=== PATIENT | female | born 1940 | race Caucasian/White ===

== ENCOUNTER → 2016-10-08 | Outpatient (CLI) | payer OTHER, MEDICARE ==
[~2016-10-08] VITALS: Ht 157.5 cm; Wt 59.0 kg
[~2016-10-08] MED LIST: ALEVE220 MG PO; APRAZOLAM OR; BUFFERIN 81 MG81 MG; CARDIZEM CD180 MG OR; CARDIZEM CD180 MG PO; CELEXA 20 MG TA20 M1; CYMBALTA60 MG PO; HYDROCODONE-AP1 EAC6 PO; LASIX 20 MG TAB20 MG PO; MECLIZINE HCL25 M1; MOBIC7.5 MG PO; OMEPRAZOLE PO; PERCOCET PO; PRILOSEC 20 MG20 MG; PRILOSEC OTC20 MG PO; PROPOXY-N-APAP1 EACH; STOOL SOFTENER100 MG PO; TYLENOL325 MG PO; VITAMIN C500 M1 PO; XANAX 0.5 MG0.5 M1 PO; ZOFRAN ODT4 MG PO
--- NOTE | ~2016-10-08 | P ---
[facility] [place] [address] PROCEDURE REPORT Name: MINESH RODRIGUEZ Room #: REG JAMI Paulino#: [id number] Admission: 10/08/16 Attend Phys: Eduardo Thomas Discharge: Date of : 36 Report #: [id number] THIS REPORT FOR: //name// CC: Eduardo Morales MD DATE OF SERVICE: 10/08/2016 PROCEDURE PERFORMED: Upper endoscopy with esophageal dilation. HISTORY OF PRESENT ILLNESS: The patient is a 76-year-old female with long history of dysphagia. She has undergone several upper endoscopies with dilations by myself in the past, last one being 7 years ago. She also had a very large hiatal hernia. This was repaired several years ago. Despite this, she continues to have dysphagia. Plan is for EGD with dilation. DESCRIPTION OF PROCEDURE: The risks and benefits of the procedure were explained to the patient, those risks including but not limited to bleeding, perforation, the risk of sedation. She understood these risks and gave informed consent. Sedation was given using propofol per anesthesia. Next, using a standard [employer] upper endoscope, the scope was placed in the patient's mouth and advanced under direct vision through the esophagus, stomach and into the second portion of the duodenum. The larynx and upper esophagus were normal; however, in the mid and distal esophagus, it was very tortuous. At the GE junction, there was a mild narrowing. Upon entering the stomach, a medium-sized hiatal hernia was noted. Overall, the gastric mucosa was normal. The pylorus was normal and patent. The duodenal bulb, first and second portion were all normal. The scope was then brought back up into the patient's stomach and a Savary guidewire was inserted through the scope, leaving the guidewire in place as the scope was then withdrawn. Next, a 48-[place] Savary dilation of the esophagus was performed without difficulty. The wire and dilator were removed. The scope was reintroduced into the patient's stomach. A small mucosal tear was noted at the GE junction. There was no bleeding. The scope was then withdrawn and the procedure terminated. The patient tolerated the procedure well. IMPRESSION: 1. Tortuous mid and distal esophagus may be playing a role in her dysphagia. 2. Medium sized hiatal hernia also may be playing a role in dysphagia. 3. Mild narrowing at the gastroesophageal junction, status post dilation. RECOMMENDATIONS: Observe the patient post-procedure. If dysphagia continues, consider a video swallow in the near future. [address] [address] PROCEDURE REPORT Name: MINESH RODRIGUEZ Room #: REG JAMI Paulino#: [id number] Admission: 10/08/16 Attend Phys: Eduardo Thomas Discharge: Date of : 36 Report #: [id number] Thank you for allowing me to participate in her care. By: 0849 [id number] Eduardo Cavazos MD /jaspreet
== END | disposition home or self-care (01) ==
LOC: GI 06:32
DX: K22.2 Esophageal obstruction (principal); K22.8 Other specified diseases of esophagus; K44.9 Diaphragmatic hernia without obstruction or gangrene; I10 Essential (primary) hypertension; J43.9 Emphysema, unspecified; K21.9 Gastro-esophageal reflux disease without esophagitis; E78.5 Hyperlipidemia, unspecified; M19.90 Unspecified osteoarthritis, unspecified site; F32.9 Major depressive disorder, single episode, unspecified; F41.9 Anxiety disorder, unspecified; Z98.890 Other specified postprocedural states; Z90.710 Acquired absence of both cervix and uterus; Z87.891 Personal history of nicotine dependence; Z88.0 Allergy status to penicillin; Z79.899 Other long term (current) drug therapy
CPT/HCPCS: 62110; 62900

== ENCOUNTER → 2016-11-30 | Outpatient (CLI) | payer OTHER, MEDICARE ==
--- NOTE | ~2016-11-30 | 2DMMODE ---
[facility] [place] [address] 2 D/M-MODE ECHOCARDIOGRAM Name: MINESH RODRIGUEZ Room #: REG Lora#: [id number] Admission: 11/30/16 Attend Phys: Mckay Woods Discharge: Date of : 36 Date of Service: 11/30/16 1420 Report #: [id number] THIS REPORT FOR: //name// APPROVED REPORT Study performed: 11/30/2016 12:51:55 EXAM: Comprehensive 2D, Doppler, and color-flow Echocardiogram Patient Location: Out-Patient Room #: Echo lab Status: routine BSA: 1.59 HR: 61 bpm BP: 138/78 mmHg Other Information Study Quality: Adequate Indications Pulmonary Hypertension Dyspnea 2D Dimensions RVDd: 34.49 mm LVEF(%): 69.10 (>50%) IVSd: 8.83 (7-11mm) LVOT Diam: 22.15 (18-24mm) LVDd: 32.16 mm PWd: 10.00 (7-11mm) Ascending Ao: 28.32 (22-36mm) LVDs: 20.05 (25-40mm) Aortic Root: 28.72 mm Waggoner's LVEF: 69.10 % Volumes Left Atrial Volume (Systole) Single Plane 4CH: 46.40 mL Single Plane 2CH: 32.90 mL LA ESV Index: 26.00 mL/m2 Aortic Valve AoV Peak Wilfredo.: 1.30 m/s AO Peak Gr.: 6.76 mmHg LVOT Max P.97 mmHg LVOT Max V: 1.22 m/s FLAVIA Vmax: 3.62 cm2 AI Vmax: 4.09 m/s AI [place]: 1.83 m/s2 AI PHT: 647.14 ms [facility] [place] [address] 2 D/M-MODE ECHOCARDIOGRAM Name: MINESH RODRIGUEZ [facility] [id number] Admission: 11/30/16 Attend Phys: Mckay Woods Discharge: Date of : 36 Date of Service: 11/30/16 1420 Report #: [id number] Mitral Valve E/A Ratio: 0.8 MV Decel. Time: 253.60 ms MV E Max Wilfredo.: 0.72 m/s MV A Wilfredo.: 0.87 m/s MV PHT: 73.54 ms IVRT: 115.34 ms Pulmonary Valve PV Peak Wilfredo.: 0.85 m/s PV Peak Gr.: 2.90 mmHg Pulmonary Vein P Vein S: 0.46 m/s P Vein A: 0.37 m/s P Vein D: 0.31 m/s P Vein A Dur.: 129.2 msec P Vein S/D Ratio: 1.48 Tricuspid Valve TR Peak Wilfredo.: 3.22 m/s TR Peak Gr.: 41.42 mmHg Left Ventricle The left ventricle is normal size. There is normal left ventricular wall thickness. Left ventricular systolic function is hyperdynamic. LVEF is 65-70%. Grade I - abnormal relaxation pattern. Right Ventricle The right ventricle is normal size. The right ventricular systolic function is normal. Atria The left atrium size is normal. Right atrium is at the upper limits of normal. Aortic Valve The aortic valve is normal in structure. Aortic valve is calcified. Trace to mild aortic regurgitation. There is no aortic valvular stenosis. Mitral Valve The mitral valve is normal in structure. Trace to mild mitral regurgitation. No evidence of mitral valve stenosis. Tricuspid Valve The tricuspid valve is normal in structure. Mild to moderate tricuspid regurgitation with an estimated PAP of 41 mmHg plus the right atrial pressure. [facility] [address] [place] [address] 2 D/M-MODE ECHOCARDIOGRAM Name: MINESH RODRIGUEZ Room #: REG CL [facility]#: [id number] Admission: 11/30/16 Attend Phys: Mckay Woods Discharge: Date of : 36 Date of Service: 11/30/16 1420 Report #: [id number] Pulmonic Valve The pulmonary valve is normal in structure. Great Vessels The aortic root is normal in size. The inferior vena cava is not well visualized. Pericardium There is no pericardial effusion. <Conclusion> The left ventricle is normal size. LVEF is 65-70%. Right atrium is at the upper limits of normal. The aortic valve is normal in structure. Aortic valve is calcified. Trace to mild aortic regurgitation. The mitral valve is normal in structure. Trace to mild mitral regurgitation. The tricuspid valve is normal in structure. Mild to moderate tricuspid regurgitation with an estimated PAP of 41 mmHg plus the right atrial pressure. There is no aortic valvular stenosis. <ELECTRONICALLY SIGNED> By: Blane Moreno MD 11/30/16 1420 142 142 Blane Moreno MD /INF
== END ==
LOC: CAT 11:56
PROVIDERS: Internal Medicine Pulmonary Disease
DX: I27.2 Other secondary pulmonary hypertension (principal); J44.9 Chronic obstructive pulmonary disease, unspecified; K44.9 Diaphragmatic hernia without obstruction or gangrene; I07.1 Rheumatic tricuspid insufficiency

== ENCOUNTER → 2017-01-04 | Outpatient (CLI) | payer OTHER, MEDICARE ==
--- NOTE | ~2017-01-04 | SLE ---
[facility] [place] [address] POLYSOMNOGRAPHY STUDY Name: MINESH RODRIGUEZ Room #: REG JAMI ..#: [id number] Admission: 01/04/17 Attend Phys: Missy Deluca MD Discharge: Date of : 36 Report #: [id number] THIS REPORT FOR: //name// CC: Missy Morales HISTORY: A 76-year-old, height 5 feet 1 inch, weight 142 pounds. Usually goes to bed at 9, gets out of bed at 8:30. Positive snoring, no definite daytime somnolence. [place] sleepiness scale of 6. COMMENTS: Total sleep time 199 minutes, sleep efficiency 45%. Sleep latency 102 minutes. No REM sleep seen. SLEEP STAGE: 1-10%, 2-88%, 3-2%. RESPIRATORY SUMMARY: Central apnea 7, obstructive apnea 1, hypopnea 5. Apnea-hypopnea index of 3.9 events per recording hour. Supine AHI 3, right lateral 4.8 events per sleep hour. Periodic limb movement with arousal index 0 events per sleep hour. No significant snoring noted. Low oxygen saturation 85%, spending 1.5% of recording time less than 90%. During the study, the patient took two 0.5 mg alprazolam at 2230. SUGGESTIONS: 1. In addition to specific therapy, the patient should be cautioned regarding driving or operating dangerous machinery unless fully alert. 2. The patient will be cautioned regarding the use of respiratory depressants. 3. Further evaluation regarding snoring is recommended. 4. Sleep hygiene measures are recommended. 5. This study does not exclude REM related sleep apnea, and further discussion regarding this is recommended. 6. Further discussion with the patient regarding why poor sleep on this night is recommended. Please do not hesitate to contact me if I may be of further assistance. <ELECTRONICALLY SIGNED> By: Missy Deluca MD 01/06/171909 07 Missy Deluca MD /nt
== END ==
LOC: SLEEPLAB 14:04 → EDSTATUS 14:08 → SLEEPLAB 16:52
DX: G47.33 Obstructive sleep apnea (adult) (pediatric) (principal)

== ENCOUNTER → 2017-01-11 | Outpatient (CLI) | payer OTHER, MEDICARE ==
--- NOTE | ~2017-01-11 | SLE ---
[facility] [address] [place] [address] POLYSOMNOGRAPHY STUDY Name: MINESH RODRIGUEZ Room #: REG JAMI Ning.#: [id number] Admission: 01/11/17 Attend Phys: Mckay Woods MD Discharge: Date of : 36 Report #: [id number] THIS REPORT FOR: //name// CC: Mckay Woods Alex Morales HISTORY: A 76-year-old, height 5 feet 1 inch, weight 142 pounds. Usually goes to bed at 9:00, gets out of bed at 8:30; positive snoring; no definite daytime somnolence. COMMENTS: Baseline portion: Total sleep time 142 minutes, sleep efficiency 60%. Central apnea 4, mixed apnea 1, obstructive apnea 25, hypopnea 39. Apnea-hypopnea index 29 events per sleep hour. Non-REM 33 REM AHI 0. Supine AHI 80, left lateral 1.3 events per sleep hour. Periodic limb movement with arousal index 0 events per sleep hour. Low oxygen saturation 85%, spending 1% of recording time less than 90%. TITRATION: Titrated at 7, 9, 10, 12, 14, 16, 17, 18 and 19 cm of water pressure. 19 cm water pressure, the patient was seen for 164 minutes of which 48 minutes was in REM sleep. Central apnea 2, obstructive apnea, 1, hypopnea, 1, apnea-hypopnea index 1.5 events per sleep hour, low sat of 95%. IMPRESSION: 1. Obstructive sleep apnea/hypopnea, G47.33. 2. Periodic limb movement with arousal index of 0 events per sleep hour. 3. Premature atrial contractions/premature ventricular contractions noted. 4. CPAP improves the patient's apnea-hypopnea index, snoring and desaturation. SUGGESTIONS: 1. In addition to specific therapy, the patient should be cautioned regarding driving or operating dangerous machinery unless fully alert. The patient should be cautioned on use of respiratory depressants. 2. Oral appliance or appropriate surgery may be considered with appropriate followup. 3. An auto titrating CPAP between 10 and 20 cm water pressure is initially recommended. During our study, a [employer]ics [place] View mask small was used with heated humidity. The patient also took zolpidem at that time. 4. If signs and symptoms not improved with therapy, further evaluation is recommended. [address] [address] POLYSOMNOGRAPHY STUDY Name: MINESH RODRIGUEZ Room #: REG [facility] Ning.#: [id number] Admission: 01/11/17 Attend Phys: Mckay Woods MD Discharge: Date of : 36 Report #: [id number] Please do not hesitate to contact me if I may be of further assistance. By: 1604 Missy Deluca MD /nt
== END ==
LOC: SLEEPLAB 19:34
DX: G47.33 Obstructive sleep apnea (adult) (pediatric) (principal)

== ENCOUNTER → 2017-03-09 | Outpatient (CLI) | payer OTHER, MEDICARE ==
--- NOTE | ~2017-03-09 | P ---
[facility] [place] [address] PROCEDURE REPORT Name: MINESH RODRIGUEZ Room #: REG JAMI Paulino#: [id number] Admission: 03/09/17 Attend Phys: Eduardo Thomas Discharge: Date of : 36 Report #: [id number] THIS REPORT FOR: //name// CC: Eduardo Morales MD DATE OF SERVICE: 03/09/2017 PROCEDURE PERFORMED: Colonoscopy. HISTORY OF PRESENT ILLNESS: The patient is a 76-year-old female who presents today for routine screening colonoscopy. She has a family history of colon cancer in her mother. She denies any symptoms. DESCRIPTION OF PROCEDURE: The risks and benefits of the procedure were explained to the patient, those risks including but not limited to bleeding, perforation, the risk of sedation. She understood these risks and gave informed consent. Sedation was given using propofol per anesthesia. Next, a digital rectal exam was initially performed, which was normal. Next, using a standard Fujinon colonoscope, the scope was placed in the patient's anus and advanced under direct vision to the cecum. The overall prep was excellent. The cecum and ileocecal valve were normal in appearance. The ascending, transverse and descending colon were normal. Multiple diverticula were noted in the sigmoid colon, otherwise normal. The rectal mucosa was normal. On retroflexion, small nonbleeding internal hemorrhoids were noted. The scope was then withdrawn and the procedure terminated. The patient tolerated the procedure well. IMPRESSION: 1. Diverticulosis. 2. Internal hemorrhoids. 3. Otherwise, normal colonoscopy. RECOMMENDATIONS: Observe the patient post-procedure. Thank you for allowing me to participate in her care. By: 1235 1715 Eduardo Cavazos MD /nt
== END | disposition home or self-care (01) ==
LOC: GI 09:25
DX: Z12.11 Encounter for screening for malignant neoplasm of colon (principal); K57.30 Diverticulosis of large intestine without perforation or abscess without bleeding; K64.8 Other hemorrhoids; Z80.0 Family history of malignant neoplasm of digestive organs; Z88.0 Allergy status to penicillin; Z79.891 Long term (current) use of opiate analgesic; Z79.899 Other long term (current) drug therapy

== ENCOUNTER 2017-09-30 10:31 | Inpatient (IN) | payer OTHER, MEDICARE ==
[~2017-09-30] VITALS: Ht 152.4 cm; Wt 62.6 kg
--- NOTE | ~2017-09-30 | O ---
[facility] [place] [address] OPERATIVE REPORT Name: MINESH RODRIGUEZ Room #: 360-[facility] IN M.R.#: [id number] Admission: 09/30/17 Attend Phys: Blade Spaulding MD Discharge: Date of : 38 Report #: [id number] THIS REPORT FOR: //name// CC: Alex Spaulding DATE OF SERVICE: 10/10/2017 PREOPERATIVE DIAGNOSES: 1. Recurrent type 3 paraesophageal hernia. 2. Dysphagia. 3. Gastroesophageal reflux disease. 4. Coronary artery disease. 5. Hyperlipidemia. 6. Recent gastrointestinal bleed with findings of internal hemorrhoids. POSTOPERATIVE DIAGNOSES: 1. Recurrent type 3 paraesophageal hernia. 2. Dysphagia. 3. Gastroesophageal reflux disease. 4. Coronary artery disease. 5. Hyperlipidemia. 6. Recent gastrointestinal bleed with findings of internal hemorrhoids. 7. Dense intra-abdominal adhesions. PROCEDURES PERFORMED: 1. Laparoscopic repair of a recurrent type 3 paraesophageal hernia with cruroplasty and bioresorbable mesh buttressing. 2. Extensive laparoscopic lysis of adhesions. 3. Thorough esophagogastroduodenoscopy (EGD). SURGEON: Trent Retana M.D. AIR CREW MEMBER: Jimmie Lee DO. ANESTHESIA: General endotracheal anesthesia. ESTIMATED BLOOD LOSS: Minimal (less than 10 mL). COMPLICATIONS: None appreciated. SPECIMENS: None. INDICATIONS: The patient is a 77-year-old female with a prior history of a laparoscopic hiatal hernia repair without any sort of fundoplication done 8 years ago. The patient was doing well with her longstanding reflux disease [facility] [address] [place] [address] OPERATIVE REPORT Name: MINESH RODRIGUEZ Room #: 360-P ADM IN M.R.#: [id number] Admission: 09/30/17 Attend Phys: Blade Spaulding MD Discharge: Date of : 38 Report #: [id number] until recently when she developed dysphagia and was found to have an extremely tortuous esophagus with difficulty entering into the gastric lumen by Dr. Cavazos approximately 10 days ago. Since that time, the patient developed even worsening dysphagia with inability to swallow and came back in where she underwent repeat EGD by Dr. Milton showing food within her esophagus and inability to now penetrate into the gastric lumen from a kinked esophagus, suspected to be due to her large recurrent paraesophageal hernia. CT angiogram of the chest showed displacement of the stomach within the mediastinum with very little stomach in the abdomen and as she has been intolerant to p.o. intake, indication was for repair once again today. Intraoperative findings of what appeared to be biologic mesh buttressing the prior hiatal repair were encountered as well as dense adhesions required a lengthy laparoscopic lysis of adhesions and a formal repair once again today. In light of no knowledge of her esophageal motility, no antireflux procedure was performed, but rather correction of her anatomic abnormality was undertaken today. DESCRIPTION OF PROCEDURE: After explaining the risks, benefits and alternatives of the procedure with the patient in detail in the preoperative holding area and obtaining written consent, the patient was brought to the operating room and placed supine on the operating room table. After conducting a thorough timeout procedure verifying correct patient and procedure, the patient was given general endotracheal anesthesia. Once adequate anesthesia was obtained, her SCDs were hooked up to pneumatic compression device and she was given a preoperative dose of antibiotics in line with the SCIP protocol. The patient's abdomen was prepped and draped in standard surgical sterile fashion after positioning her in the low lithotomy position with her legs in the Yellofin stirrups. The 5 mL of 0.5% Marcaine with epinephrine were used to anesthetize the skin 3 cm cephalad to the umbilicus and 2 cm to the patient's left. A #15 bladed scalpel was used to create a small skin natalie at this location. A 5-mm Visiport was placed over 0-degree 5-mm laparoscope and was introduced through this incision site. Once intra-abdominal placement was verified visually, the obturator for the trocar and laparoscope were both removed and the abdomen was insufflated to 15 mmHg using carbon dioxide gas. The laparoscope was changed to a 5-mm 30-degree laparoscope, which was reintroduced through this trocar. The entire abdomen was evaluated to ensure no injury upon entry. There were adhesions of omentum throughout the upper abdomen. We were able to navigate around these and place additional trocars. A 5-mm port was placed in the right upper quadrant at the midclavicular line in subcostal location, a 12-mm port was placed 5 cm lateral to the initially placed port in the left mid flank and a final 5-mm port was placed in extreme left lateral flank. All 3 additional trocars were placed under direct vision after anesthetizing the skin at each location with 5 mL of 0.5% Marcaine with epinephrine and I had created appropriately sized skin nicks using #15 bladed scalpel. I now took down omental adhesions from the abdominal wall in the upper abdomen using Harmonic scalpel for hemostasis. I was now able to evaluate the stomach and upper abdomen. I placed a Parker liver retractor in subxiphoid location by anesthetizing the skin at that location with [address] [address] OPERATIVE REPORT Name: MINESH RODRIGUEZ Room #: 360-P [facility] IN ..#: [id number] Admission: 09/30/17 Attend Phys: Blade Spaulding MD Discharge: Date of : 38 Report #: [id number] 0.5% Marcaine with epinephrine and I had created a small skin natalie using a #15 bladed scalpel. The Parker retractor was maneuvered through this defect where it was positioned up under the left lobe of the liver and was held up against the posterior aspect of the anterior abdominal wall. This was fixed into position using the iron international controller device. We now had complete access to the stomach and hiatal regions and saw very little stomach contained within the abdomen and a sizeable hiatal defect from the type 3 paraesophageal hernia. We now applied gentle manual traction on the stomach in an inferior direction to attempt to retract it back down into the abdomen. We were able to open the pars flaccida to identify the base of the right nicole. I dissected anteriorly up the right nicole and found a foreign material which upon review appears to be a biologic mesh from prior buttressing at the time of her prior hernia repair. Ultimately, I was able to take the omental adhesions from this down as this appeared well incorporated into the hiatus. I continued taking down the hernia sac staying well away from all esophageal and gastric tissues at all times to prevent injury from thermal spread and did so. I took down all of the adhesions, staying well away from these structures and carried the dissection as far cephalad as possible. The stomach was then reflected anteriorly into the patient's right side and I was able to identify the base of the left nicole and dissected anteriorly up the left nicole as well. Ultimately, I was able to pass a grasper from the patient's right to left side in the retroesophageal space where I brought a Alondra drain through this area where I had mated the tails anteriorly to be used as a handle. This was cinched up on the esophagus and we were able to retract inferiorly and anteriorly to complete the extensive mediastinal dissection using Harmonic scalpel to take down all adhesions in the mediastinum that were longstanding and thick and ultimately, we were able to identify a straight esophagus that had now had no traction to recoil backup in the mediastinum. At the completion of this extensive mediastinal dissection, we had approximately 4 cm of intraabdominal esophagus that again was not under traction to recoil backup in the mediastinum. The esophagus was elevated anteriorly and we started the process of repairing the hiatal defect from the type 3 paraesophageal hernia. Several sutures of 0 Surgidac on the EndoStitch device were used to perform the cruroplasty posteriorly. This was brought up until the esophagus appeared to enter into the abdomen at a level position and as such required an additional suture anteriorly to bring the tissues together around the esophagus so as not to distort the angle of entry into the abdomen too severely and cause further dysphagia in the postoperative setting. Photodocumentation of the hiatal repair were taken and provided to the patient in permanent medical record. I now selected a piece of Phasix ST bioresorbable mesh that measured 6 x 8 cm in dimension. A U-shaped notch was cut out of it and was entered into the abdomen through the 12-mm port. This was positioned appropriately on the diaphragm with the U-shaped notch oriented upwards in standard fashion. This was anchored to the diaphragm using 10 mL of Tisseel on the Alderalospray device. This held the mesh in excellent orientation, flush to the diaphragmatic repair to help buttress it. The Vassar drain was now removed and again saw 4 cm of intraabdominal esophagus that was not under traction to [facility] [address] [place] [address] OPERATIVE REPORT Name: MINESH RODRIGUEZ Room #: 360-P [facility] IN Lora#: [id number] Admission: 09/30/17 Attend Phys: Blade Spaulding MD Discharge: Date of : 38 Report #: [id number] attempt to recoil into the mediastinum. We now had the complete stomach in addition to the 4 cm of the esophagus contained within the abdomen in proper orientation. We now performed an EGD. The [employer] upper endoscope was used to intubate the oropharynx, was traversed down in the esophagus with ease. The esophagus was straight and we were able to easily intubate through the hiatal repair as well as to the lower esophageal sphincter into the gastric lumen. There were small amount of retained food debris in the esophagus that was pushed into the stomach with the scope. A retroflexion view showed excellent orientation of the hiatal repair. There were no mucosal abnormalities whatsoever. The scope was straightened out and slowly withdrawn into the distal esophagus again where it was seen to enter through the hiatal repair and through the lower esophageal sphincter on several occasions without resistance. There was no kinking to the esophagus whatsoever. There was no damage evident whatsoever. The stomach was fully desufflated. The EGD scope was removed and passed off the field. I then sterilely reenter the operative field and then closed the 12-mm fascial incision using 0 PDS suture on a Jc-Michael suture passer device under direct vision. The Parker liver retractor was removed under direct vision. The liver was healthy and uninjured. The abdomen was fully desufflated. All remaining trocars were removed under direct vision. A 4-0 Monocryl was used in a standard subcuticular fashion for all skin incisions and Dermabond glue was applied to all skin wounds. At the end of the procedure, all instrument, needle and sponge counts were correct. The patient tolerated the procedure without incident, was awakened in the operating room, transitioned to the recovery room in stable condition with no apparent complications. <ELECTRONICALLY SIGNED> By: Trent Retana MD, FACS 10/10/17 1728 [id number] [id number] Trent Retana MD, FACS /nt
--- NOTE | ~2017-09-30 | PATH ---
[facility] [place] [address] PATHOLOGY RPT PROCEDURE Name: MINESH RODRIGUEZ Room #: 360-P ADM IN M.R.#: [id number] Admission: 09/30/17 Date of : 38 Discharge: Report #: [id number] Path Case #: [id number] [facility] Accession Number: [id number] . 01 Material submitted: . BIOPSY, GASTRIC . 01 Clinical history: . Pre-Op DX: Melena Post-Op DX: Gastric ulcer . 02 Diagnosis: "BX gastric R/O H. pylori", biopsy: - Gastric mucosa with mild reactive changes and mild acute and chronic inflammation. - Negative H. pylori immunohistochemical stain (block A1); control reacted appropriately. . (CLW:mmole; 10/03/2017) QL/10/03/2017 . 02 Electronically signed: . Marian Berger MD, Pathologist NPI- [id number] . 01 Gross description: . Received in formalin labeled "Josesito, Minesh, BX gastric rule out H. pylori" are 3 segments of childers soft tissue measuring 0.9 x 0.4 x 0.2 cm in aggregate dimensions and ranging from 0.2 to 0.4 cm in maximum dimension. The specimen is submitted entirely in cassette A1. (TSD; 09/30/2017) TOB/TOB . 02 CPT . 542255, W32566 Performed at: [address] [id number] MD Darrel Patricio MD Phone: [phone] Performed at: [address] [id number] MD Concepción Dorsey MD Phone: [phone]
--- NOTE | ~2017-09-30 | EKG ---
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 : 1940 Requested By: Harvinder Mascorro Order Number: [id number] MD: Dewey Du Measurements Intervals [place] Rate: 74 P: 17 PA: 162 QRS: -14 QRSD: 91 T: 53 QT: 392 QTc: 435 Interpretive Statements Sinus rhythm Inferior infarct, old Probable anterolateral infarct, old Compared to ECG 10/10/2015 09:18:07 No significant change was found Electronically Signed On 09-30-2017 16:30:43 CDT by Dewey Du [email or web address] <ELECTRONICALLY SIGNED> By: Dewey Du MD, [facility] 09/30/17 1630 1101 00 Dewey Du MD, [facility] /EPI
--- NOTE | ~2017-09-30 | EKG ---
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[place] : 1940 Requested By: Blade Spaulding Order Number: [id number] MD: Dewey Du Measurements Intervals [place] Rate: 82 P: 49 DE: 149 QRS: -63 QRSD: 97 T: 4 QT: 399 QTc: 466 Interpretive Statements Sinus rhythm Inferior infarct, old Poor R wave progression Compared to ECG 09/30/2017 11:01:54 No significant changes Electronically Signed On 10-05-2017 15:41:53 CDT by Dewey Du [email or web address] <ELECTRONICALLY SIGNED> By: Dewey Du MD, [facility] 10/05/17 1541 1053 1053 Dewey Du MD, [facility] /EPI
--- NOTE | ~2017-09-30 | 2DMMODE ---
[facility] [address] [place] [address] 2 D/M-MODE ECHOCARDIOGRAM Name: MINESH RODRIGUEZ Room #: 360-P ADM IN .R.#: [id number] Admission: 09/30/17 Attend Phys: Blade Spaulding MD Discharge: Date of : 38 Date of Service: 10/03/17 1515 Report #: [id number] THIS REPORT FOR: //name// APPROVED REPORT Study performed: 10/03/2017 13:05:05 EXAM: Comprehensive 2D, Doppler, and color-flow Echocardiogram Patient Location: Bedside Room #: 360 Status: routine BSA: 1.59 HR: 68 bpm BP: 127/57 mmHg Other Information Study Quality: Technically Difficult Indications Hypertension/HDD SOB/hypoxia 2D Dimensions RVDd: 38.39 mm LVEF(%): 75.00 (>50%) IVSd: 7.84 (7-11mm) LVOT Diam: 19.68 (18-24mm) LVDd: 38.00 mm PWd: 8.66 (7-11mm) LVDs: 21.61 (25-40mm) Aortic Root: 27.05 mm Waggoner's LVEF: 75.00 % Volumes Left Atrial Volume (Systole) Single Plane 4CH: 50.07 mL Single Plane 2CH: 45.41 mL LA ESV Index: 33.00 mL/m2 Aortic Valve AoV Peak Wilfredo.: 1.60 m/s AO Peak Gr.: 11.45 mmHg LVOT Max P.48 mmHg LVOT Max V: 1.27 m/s FLAVIA Vmax: 2.42 cm2 AI Vmax: 4.20 m/s AI [place]: 3.72 m/s2 AI PHT: 327.[address] [facility] [place] [address] 2 D/M-MODE ECHOCARDIOGRAM Name: JENNIFERMINESH Room #: [address] [place] [address] IN ..#: [id number] Admission: 09/30/17 Attend Phys: Blade Spaulding MD Discharge: Date of : 38 Date of Service: 10/03/17 1515 Report #: [id number] Mitral Valve E/A Ratio: 1.1 MV Decel. Time: 250.69 ms MV E Max Wilfredo.: 0.96 m/s MV A Wilfredo.: 0.86 m/s MV PHT: 72.70 ms IVRT: 89.97 ms Pulmonary Valve PV Peak Wilfredo.: 1.03 m/s PV Peak Gr.: 4.28 mmHg Pulmonary Vein P Vein S: 0.75 m/s P Vein A: 0.37 m/s P Vein D: 0.45 m/s P Vein A Dur.: 90.0 msec P Vein S/D Ratio: 1.67 Tricuspid Valve TR Peak Wilfredo.: 3.71 m/s TR Peak Gr.: 55.11 mmHg Left Ventricle The left ventricle is normal size. There is normal left ventricular wall thickness. The left ventricular systolic function is normal. The left ventricular ejection fraction is within the normal range. LVEF is 65%. Moderate diastolic dysfunction is present (pseudonormal filling). Right Ventricle Right ventricle is at the upper limits of normal. The right ventricular systolic function is normal. Atria The left atrium size is normal. Right atrium is mildly dilated. Aortic Valve The aortic valve is not well visualized. Moderate to severe aortic regurgitation There is no aortic valvular stenosis. Mitral Valve The mitral valve is normal in structure. Mild mitral regurgitation. No evidence of mitral valve stenosis. Tricuspid Valve The tricuspid valve is normal in structure. Moderate tricuspid [address] [address] 2 D/M-MODE ECHOCARDIOGRAM Name: MINESH RODRIGUEZ Room #: 360-P [facility] IN M.R.#: [id number] Admission: 09/30/17 Attend Phys: Blade Spaulding MD Discharge: Date of : 38 Date of Service: 10/03/17 1515 Report #: [id number] regurgitation. PAP is estimated at 55 mmHg + estimated right atrial pressure. Pulmonic Valve Pulmonic valve is not well visualized. Mild pulmonic regurgitation visualized. Great Vessels The aortic root is normal in size. The inferior vena cava is not visualized. Pericardium There is no pericardial effusion. <Conclusion> The left ventricle is normal size. LVEF is 65%. Right atrium is mildly dilated. Right ventricle is at the upper limits of normal. The aortic valve is not well visualized and cannot accurately comment on structure Moderate to severe aortic regurgitation although technically limited results The mitral valve is normal in structure. Mild mitral regurgitation. The tricuspid valve is normal in structure. Moderate tricuspid regurgitation. PAP is estimated at 55 mmHg + estimated right atrial pressure. Pulmonic valve is not well visualized. Mild pulmonic regurgitation visualized. There is no pericardial effusion. <ELECTRONICALLY SIGNED> By: Blane Moreno MD 10/03/17 1515 1515 1515 Blane Moreno MD /INF
--- NOTE | ~2017-09-30 | HC ---
[facility] [place] [address] CONSULTATION Name: MINESH RODRIGUEZ Room #: 360-P [facility] IN M.R.#: [id number] Admission: 09/30/17 Attend Phys: Blade Spaulding MD Discharge: Date of : 38 Report #: [id number] THIS REPORT FOR: //name// CC: Alex Spaulding DATE OF SERVICE: 10/06/2017 REFERRING PROVIDER: Karma Milton DO REASON FOR CONSULT: Large recurrent paraesophageal hernia. HISTORY OF PRESENT ILLNESS: The patient is a 77-year-old female who presented initially with rectal bleeding and 5 episodes of diarrhea with dark blood. The patient was also complaining of chest pain and was seen by Dr. Cavazos last week, where he found a large recurrent hiatal hernia and underwent Savary dilation. Unfortunately, since that time, the patient has had difficulties with oral intake and underwent a repeat EGD by Dr. Milton earlier today, showing evidence of impacted food throughout the esophagus with inability to enter into the gastric lumen, consistent with a large recurrent paraesophageal hernia. In addition, the patient recently received a CT angiogram of the chest, showing findings of two-thirds of her stomach within the mediastinum. For that reason, I am asked to evaluate as she is intolerant to p.o. intake with this recurrent paraesophageal hernia. PAST MEDICAL HISTORY: Heart disease, hyperlipidemia, GERD, hiatal hernia, diverticulosis, arthritis, internal hemorrhoids. PAST SURGICAL HISTORY: Prior hysterectomy and a paraesophageal hernia repair in 2009. HOME MEDICATIONS: Oxybutynin, Prilosec, Xanax, diltiazem, Tylenol, Colace, Cymbalta, Percocet, vitamin C, and Lasix. ALLERGIES: PENICILLIN, which causes HIVES. SOCIAL HISTORY: Does not utilize tobacco, alcohol or illicit drugs. FAMILY HISTORY: Reviewed and noncontributory. REVIEW OF SYSTEMS: GENERAL: The patient denies nocturnal fevers or chills. HEENT: No change in vision, change in hearing. NECK: No swelling or difficulty swallowing. HEART: No chest pain or palpitations. LUNGS: No cough or shortness of breath. [facility] [address] [place] [address] CONSULTATION Name: MINESH RODRIGUEZ Room #: 360-P [facility] IN .R.#: [id number] Admission: 09/30/17 Attend Phys: Blade Spaulding MD Discharge: Date of : 38 Report #: [id number] ABDOMEN: Abdominal pain with nausea and vomiting. GENITOURINARY: No dysuria or hematuria. ENDOCRINE: No polyuria, polydipsia. HEMATOLOGIC: No history of bleeding or easy bruising. EXTREMITIES: No history of weakness or limited range of motion. NEUROLOGIC: No history of syncope or near syncopal episodes. SKIN AND INTEGUMENT: No history of abnormal lesions or moles. PSYCHIATRIC: No history of anxiety or depression. PHYSICAL EXAMINATION: VITAL SIGNS: Temperature 98.3, pulse 84, respirations 18, blood pressure 137/72. She weighs 138 pounds. GENERAL: Alert and oriented, in no acute distress. HEENT: Normocephalic, atraumatic. Pupils equal, round, reactive to light. NECK: Supple, without lymphadenopathy. Trachea midline. HEART: Regular rate and rhythm. LUNGS: Clear to auscultation bilaterally. ABDOMEN: Soft, nontender, nondistended. GENITOURINARY: Normal external female genitalia. EXTREMITIES: No clubbing, cyanosis or edema. NEUROLOGIC: Cranial nerves 2-12 are grossly intact. PSYCHIATRIC: Normal mood and affect. SKIN AND INTEGUMENT: No abnormal lesions or moles. LABORATORY AND X-RAY DATA: CBC shows white blood cell count of 7.6 thousand; hemoglobin 10.4; platelets 332,000. Creatinine is 0.7 and albumin was 2.9. CT angiogram of the chest as well as recent EGD findings, as per HPI, show a large recurrent type 3 paraesophageal hernia. ASSESSMENT AND PLAN: A 77-year-old female with at least a type 3, if not a type 4 recurrent paraesophageal hernia and inability to tolerate p.o. intake. I will obtain an upper GI swallow today to evaluate whether there is any patency of liquids and if so, we may be able to buy time and obtain a formal manometry study. However, if she is intolerant or is completely obstructed, she may necessitate more urgent surgical intervention with laparoscopic possible open repair of her recurrent paraesophageal hernia, likely with placement of a PEG tube to pexy the stomach within the abdomen and further prevent recurrence. All the above was discussed with the patient and her family in detail that took greater than 60 minutes today, discussing the etiology, pathophysiology and natural history of hiatal hernias as well as the proposed surgical treatment moving forward. All of agreed to proceed as outlined. [facility] [address] [place] [address] CONSULTATION Name: MINESH RODRIGUEZ Room #: 360-P ADM IN M.R.#: [id number] Admission: 09/30/17 Attend Phys: Blade Spaulding MD Discharge: Date of : 38 Report #: [id number] I sincerely appreciate this consult. I will follow along and leave any further recommendations in the patient's chart as appropriate. <ELECTRONICALLY SIGNED> By: Trent Retana MD, FACS 10/10/17 1355 [id number] Trent Retana MD, FACS /nt
[2017-09-30 10:32] VITALS: BP 130/51
[2017-09-30] MEDS ORDERED: OXYBUTYNIN 5 MG5 M1 PO (10:42)
[2017-09-30] MEDS ORDERED: ACULAR LS5 ML OPHTHALMIC (10:43)
[2017-09-30 11:05] LABS: ABSOLUTE NEUTROPHILS 7.4 thou/uL (1.4-8.2); BASOPHILS 0.7 % (0.0-2.0); EOSINOPHILS 0.8 % (0.0-3.0); HEMATOCRIT 28.9 % (37.0-47.0); HEMOGLOBIN 9.9 gm/dL (12.0-15.0); LYMPHOCYTES 11.4 % (24.0-44.0); MCH 29.4 pg (26.0-34.0); MCHC 34.4 g/dL (28.0-37.0); MCV 85.5 fL (80.0-100.0); MONOCYTES 8.8 % (1.0-8.0); PLATELET COUNT 248 thou/uL (150-400); POLYS 78.3 % (36.0-66.0); RBC 3.37 mil/uL (4.20-5.00); RDW 14.3 % (10.5-14.5); WBC 9.5 thou/uL (4.0-11.0)
[2017-09-30 11:11] LABS: ANION GAP 7 mmol/L (7-16); BUN 48 mg/dL (7-18); CALCIUM 8.9 mg/dL (8.5-10.1); CHLORIDE 104 mmol/L (98-107); CO2 25 mmol/L (21-32); CREATININE 1.1 mg/dL (0.6-1.0); GLUCOSE 117 mg/dL (74-106); POTASSIUM 4.3 mmol/L (3.5-5.1); SODIUM 136 mmol/L (136-145)
[2017-09-30 11:20] LABS: ALBUMIN 3.3 g/dL (3.4-5.0); DIRECT BILIRUBIN 0.1 mg/dL (<0.1-0.3); SGOT 22 U/L (15-37); SGPT 18 U/L (30-65); TOTAL BILIRUBIN 0.5 mg/dL (<0.1-1.0); TOTAL PROTEIN 6.6 g/dL (6.4-8.2); TROPONIN-I < 0.04 ng/mL (<0.06)
[2017-09-30 13:05] VITALS: BP 135/60
[2017-09-30 15:05] VITALS: BP 151/65
[2017-09-30 15:10] VITALS: BP 151/65
[2017-09-30 17:20] LABS: HEMOGLOBIN 9.2 gm/dL (12.0-15.0)
[2017-09-30 19:10] VITALS: BP 127/56
[2017-10-01 03:52] VITALS: BP 117/54
[2017-10-01 05:28] LABS: HEMATOCRIT 22.5 % (37.0-47.0); HEMOGLOBIN 7.5 gm/dL (12.0-15.0); MCH 28.9 pg (26.0-34.0); MCHC 33.3 g/dL (28.0-37.0); MCV 86.7 fL (80.0-100.0); RBC 2.6 mil/uL (4.20-5.00); RDW 14.8 % (10.5-14.5); WBC 7.1 thou/uL (4.0-11.0)
[2017-10-01 05:43] LABS: CREATININE 0.7 mg/dL (0.6-1.0); POTASSIUM 3.8 mmol/L (3.5-5.1)
[2017-10-01 08:09] VITALS: BP 120/65
[2017-10-01 11:57] VITALS: BP 128/66
[2017-10-01 15:45] VITALS: BP 107/63
[2017-10-01 17:23] LABS: HEMATOCRIT 24.1 % (37.0-47.0)
[2017-10-01 20:10] VITALS: BP 117/57
[2017-10-02] VITALS (8 sets, daily range): BP systolic 97–142; BP diastolic 44–64
[2017-10-02 05:23] LABS: HEMATOCRIT 21.9 % (37.0-47.0); HEMOGLOBIN 7.4 gm/dL (12.0-15.0)
[2017-10-02 17:47] LABS: ABSOLUTE NEUTROPHILS 7.6 thou/uL (1.4-8.2); BASOPHILS 0.6 % (0.0-2.0); EOSINOPHILS 1.6 % (0.0-3.0); HEMATOCRIT 29.7 % (37.0-47.0); MCH 29.2 pg (26.0-34.0); MCHC 33.5 g/dL (28.0-37.0); MONOCYTES 11.8 % (1.0-8.0); PLATELET COUNT 216 thou/uL (150-400); RBC 3.41 mil/uL (4.20-5.00); RDW 15.1 % (10.5-14.5); WBC 10.6 thou/uL (4.0-11.0)
[2017-10-02 17:48] LABS: HEMOGLOBIN 9.9 gm/dL (12.0-15.0)
[2017-10-02 17:54] LABS: CALCIUM 8.4 mg/dL (8.5-10.1); CREATININE 0.8 mg/dL (0.6-1.0); POTASSIUM 3.6 mmol/L (3.5-5.1)
[2017-10-03] VITALS (7 sets, daily range): BP systolic 106–157; BP diastolic 49–70
[2017-10-03 05:41] LABS: ABSOLUTE NEUTROPHILS 5.9 thou/uL (1.4-8.2); BASOPHILS 0.4 % (0.0-2.0); EOSINOPHILS 2.3 % (0.0-3.0); HEMATOCRIT 27.5 % (37.0-47.0); HEMOGLOBIN 9.4 gm/dL (12.0-15.0); LYMPHOCYTES 15.5 % (24.0-44.0); MCH 29.3 pg (26.0-34.0); MCHC 34.1 g/dL (28.0-37.0); MCV 85.8 fL (80.0-100.0); MONOCYTES 11.5 % (1.0-8.0); PLATELET COUNT 195 thou/uL (150-400); POLYS 70.3 % (36.0-66.0); RDW 14.9 % (10.5-14.5); WBC 8.4 thou/uL (4.0-11.0)
[2017-10-03 05:50] LABS: CALCIUM 8.3 mg/dL (8.5-10.1); CREATININE 0.7 mg/dL (0.6-1.0); POTASSIUM 3.2 mmol/L (3.5-5.1)
[2017-10-03 17:30] LABS: HEMATOCRIT 28.4 % (37.0-47.0); HEMOGLOBIN 9.9 gm/dL (12.0-15.0)
[2017-10-04 04:05] VITALS: BP 122/70
[2017-10-04 05:24] LABS: HEMATOCRIT 28.9 % (37.0-47.0); HEMOGLOBIN 9.6 gm/dL (12.0-15.0); MCH 28.8 pg (26.0-34.0); MCHC 33.2 g/dL (28.0-37.0); MCV 86.9 fL (80.0-100.0); PLATELET COUNT 211 thou/uL (150-400); RBC 3.32 mil/uL (4.20-5.00); RDW 14.9 % (10.5-14.5)
[2017-10-04 05:32] LABS: CALCIUM 8.7 mg/dL (8.5-10.1); CREATININE 0.6 mg/dL (0.6-1.0); MAGNESIUM 1.8 mg/dL (1.8-2.4); POTASSIUM 3.9 mmol/L (3.5-5.1)
[2017-10-04 07:44] LABS: ABSOLUTE NEUTROPHILS 5.5 thou/uL (1.4-8.2)
[2017-10-04 07:45] LABS: PLATELET ESTIMATE NORMAL; POLYCHROMASIA 1+
[2017-10-04 08:23] VITALS: BP 145/69
[2017-10-04 11:18] LABS: URINE BILIRUBIN NEGATIVE (Negative); URINE BLOOD NEGATIVE (Negative); URINE CLARITY CLEAR; URINE COLOR YELLOW; URINE GLUCOSE-RANDOM* NEGATIVE (Negative); URINE KETONES NEGATIVE (Negative); URINE LEUKOCYTES NEGATIVE (Negative); URINE NITRITE NEGATIVE (Negative); URINE PROTEIN (DIPSTICK) NEGATIVE (Negative); URINE UROBILINOGEN 0.2 E.U./dl (0.2-1.0)
[2017-10-04 12:19] VITALS: BP 130/75
[2017-10-04 17:36] LABS: HEMATOCRIT 30.2 % (37.0-47.0); HEMOGLOBIN 10.2 gm/dL (12.0-15.0)
[2017-10-04 17:44] VITALS: BP 152/76
[2017-10-04 20:05] VITALS: BP 190/88
[2017-10-04 23:30] VITALS: BP 138/73
[2017-10-05] VITALS (8 sets, daily range): BP systolic 111–181; BP diastolic 61–89
[2017-10-05 01:08] LABS: HEMATOCRIT 30.8 % (37.0-47.0); HEMOGLOBIN 10.5 gm/dL (12.0-15.0)
[2017-10-05 05:57] LABS: HEMATOCRIT 30.3 % (37.0-47.0); HEMOGLOBIN 10.6 gm/dL (12.0-15.0); MCHC 34.9 g/dL (28.0-37.0); MCV 86.1 fL (80.0-100.0); PLATELET COUNT 279 thou/uL (150-400); RBC 3.51 mil/uL (4.20-5.00); RDW 14.8 % (10.5-14.5); WBC 6.7 thou/uL (4.0-11.0)
[2017-10-05 06:16] LABS: ALBUMIN 2.9 g/dL (3.4-5.0); CALCIUM 8.9 mg/dL (8.5-10.1); CREATININE 0.7 mg/dL (0.6-1.0); MAGNESIUM 1.8 mg/dL (1.8-2.4); POTASSIUM 3.5 mmol/L (3.5-5.1); TOTAL BILIRUBIN 0.5 mg/dL (<0.1-1.0); TOTAL PROTEIN 6.1 g/dL (6.4-8.2)
[2017-10-05 08:59] LABS: ABSOLUTE NEUTROPHILS 4.6 thou/uL (1.4-8.2); PLATELET ESTIMATE NORMAL
[2017-10-06 02:34] VITALS: BP 176/78
[2017-10-06 04:04] VITALS: BP 137/72
[2017-10-06 06:36] LABS: HEMATOCRIT 31.2 % (37.0-47.0); HEMOGLOBIN 10.4 gm/dL (12.0-15.0); MCH 28.5 pg (26.0-34.0); MCHC 33.2 g/dL (28.0-37.0); PLATELET COUNT 332 thou/uL (150-400); RBC 3.63 mil/uL (4.20-5.00); RDW 14.7 % (10.5-14.5); WBC 7.6 thou/uL (4.0-11.0)
[2017-10-06 06:53] LABS: ALBUMIN 2.9 g/dL (3.4-5.0); CALCIUM 8.9 mg/dL (8.5-10.1); CREATININE 0.7 mg/dL (0.6-1.0); TOTAL BILIRUBIN 0.5 mg/dL (<0.1-1.0); TOTAL PROTEIN 6.7 g/dL (6.4-8.2)
[2017-10-06 08:08] VITALS: BP 150/78
[2017-10-06 08:32] LABS: ABSOLUTE NEUTROPHILS 5.7 thou/uL (1.4-8.2); PLATELET ESTIMATE NORMAL
[2017-10-06 12:11] VITALS: BP 155/74
[2017-10-06 15:31] VITALS: BP 155/74
[2017-10-06 20:00] VITALS: BP 162/71
[2017-10-07] VITALS: BP 151/67
[2017-10-07 05:19] VITALS: BP 164/77
[2017-10-07 05:41] LABS: HEMATOCRIT 29.8 % (37.0-47.0); HEMOGLOBIN 9.9 gm/dL (12.0-15.0); MCH 28.7 pg (26.0-34.0); MCHC 33.1 g/dL (28.0-37.0); MCV 86.5 fL (80.0-100.0); PLATELET COUNT 315 thou/uL (150-400); RBC 3.44 mil/uL (4.20-5.00); RDW 14.4 % (10.5-14.5); WBC 6.7 thou/uL (4.0-11.0)
[2017-10-07 05:45] LABS: CALCIUM 8.5 mg/dL (8.5-10.1); CREATININE 0.6 mg/dL (0.6-1.0)
[2017-10-07 05:48] LABS: POTASSIUM 2.8 mmol/L (3.5-5.1)
[2017-10-07 08:10] VITALS: BP 145/79
[2017-10-07 08:26] LABS: ABSOLUTE NEUTROPHILS 5.5 thou/uL (1.4-8.2); PLATELET ESTIMATE NORMAL
[2017-10-07 12:20] VITALS: BP 165/73
[2017-10-07 16:41] VITALS: BP 154/80
[2017-10-07 19:22] VITALS: BP 140/82
[2017-10-08 03:50] VITALS: BP 132/56
[2017-10-08 04:14] LABS: HEMATOCRIT 28.3 % (37.0-47.0); HEMOGLOBIN 9.7 gm/dL (12.0-15.0); MCH 29.3 pg (26.0-34.0); MCHC 34.3 g/dL (28.0-37.0); MCV 85.5 fL (80.0-100.0); RBC 3.31 mil/uL (4.20-5.00); RDW 14.7 % (10.5-14.5); WBC 5.7 thou/uL (4.0-11.0)
[2017-10-08 04:23] LABS: CALCIUM 8.7 mg/dL (8.5-10.1); CREATININE 0.7 mg/dL (0.6-1.0); POTASSIUM 3.3 mmol/L (3.5-5.1)
[2017-10-08 07:46] VITALS: BP 134/70
[2017-10-08 12:00] VITALS: BP 120/62; BP 130/72
[2017-10-08 18:03] VITALS: BP 142/80
[2017-10-08 19:10] VITALS: BP 127/81
[2017-10-09 04:15] VITALS: BP 118/57
[2017-10-09 05:56] LABS: HEMATOCRIT 27.9 % (37.0-47.0); HEMOGLOBIN 9.5 gm/dL (12.0-15.0); MCH 29.3 pg (26.0-34.0); MCHC 34.2 g/dL (28.0-37.0); MCV 85.6 fL (80.0-100.0); RBC 3.26 mil/uL (4.20-5.00); RDW 14.9 % (10.5-14.5); WBC 6.2 thou/uL (4.0-11.0)
[2017-10-09 06:15] LABS: ALBUMIN 2.4 g/dL (3.4-5.0); CALCIUM 8.8 mg/dL (8.5-10.1); CREATININE 0.7 mg/dL (0.6-1.0); TOTAL BILIRUBIN 0.3 mg/dL (<0.1-1.0); TOTAL PROTEIN 5.9 g/dL (6.4-8.2)
[2017-10-09 07:57] VITALS: BP 128/68
[2017-10-09 12:00] VITALS: BP 140/70
[2017-10-09 15:55] VITALS: BP 136/64
[2017-10-09 19:30] VITALS: BP 133/61
[2017-10-10] VITALS (11 sets, daily range): BP systolic 128–152; BP diastolic 54–95
[2017-10-10 05:57] LABS: HEMATOCRIT 28.5 % (37.0-47.0); HEMOGLOBIN 9.4 gm/dL (12.0-15.0); MCH 28.3 pg (26.0-34.0); MCHC 33.1 g/dL (28.0-37.0); MCV 85.7 fL (80.0-100.0); RBC 3.32 mil/uL (4.20-5.00); RDW 14.9 % (10.5-14.5); WBC 6.4 thou/uL (4.0-11.0)
[2017-10-10 06:08] LABS: CREATININE 0.6 mg/dL (0.6-1.0); POTASSIUM 4.2 mmol/L (3.5-5.1)
[2017-10-11 04:04] VITALS: BP 148/89
[2017-10-11 04:53] LABS: ALBUMIN 2.8 g/dL (3.4-5.0); CREATININE 0.8 mg/dL (0.6-1.0); POTASSIUM 4.4 mmol/L (3.5-5.1); TOTAL BILIRUBIN 0.4 mg/dL (<0.1-1.0); TOTAL PROTEIN 6.7 g/dL (6.4-8.2)
[2017-10-11 05:06] LABS: HEMATOCRIT 29.1 % (37.0-47.0); HEMOGLOBIN 9.8 gm/dL (12.0-15.0); MCH 28.8 pg (26.0-34.0); MCHC 33.5 g/dL (28.0-37.0); MCV 85.8 fL (80.0-100.0); RBC 3.39 mil/uL (4.20-5.00); RDW 14.5 % (10.5-14.5); WBC 11.7 thou/uL (4.0-11.0)
[2017-10-11 07:21] VITALS: BP 143/75
[2017-10-11 15:42] VITALS: BP 152/66
[2017-10-11 19:14] VITALS: BP 136/92
[2017-10-12 03:57] VITALS: BP 129/68
[2017-10-12 07:20] VITALS: BP 98/56
[2017-10-12] MEDS ORDERED: PERCOCET PO (08:55)
[2017-10-12] MEDS ORDERED: OXYCODONE20 MG/1 ML PO (08:56)
[2017-10-12] MEDS ORDERED: REGLAN 10 MG TA10 MG PO (08:56)
[2017-10-12 10:03] VITALS: BP 155/74
== END 2017-10-12 13:40 | disposition home health service (06) | DRG 326 ==
LOC: ER 10:31 → 3W 12:13 → EROBS 12:13 → 3W 13:24
PROVIDERS: Emergency Medicine; Hospitalist; Internal Medicine Gastroenterology; Nurse Practitioner; Surgery
PROC: 30233N1 Transfusion of Nonautologous Red Blood Cells into Peripheral Vein, Percutaneous Approach (ICD-10-PCS; 2017-10-02)
PROC: 0DJ08ZZ Inspection of Upper Intestinal Tract, Via Natural or Artificial Opening Endoscopic (ICD-10-PCS; 2017-10-06)
PROC: 0DNU4ZZ Release Omentum, Percutaneous Endoscopic Approach (ICD-10-PCS; principal; 2017-10-10)
PROC: 0BUT4JZ Supplement Diaphragm with Synthetic Substitute, Percutaneous Endoscopic Approach (ICD-10-PCS; principal; 2017-10-10)
DX: K25.4 Chronic or unspecified gastric ulcer with hemorrhage (principal); J96.91 Respiratory failure, unspecified with hypoxia; I50.30 Unspecified diastolic (congestive) heart failure; J98.11 Atelectasis; K57.91 Diverticulosis of intestine, part unspecified, without perforation or abscess with bleeding; Z90.710 Acquired absence of both cervix and uterus; E78.5 Hyperlipidemia, unspecified; G89.29 Other chronic pain; M54.9 Dorsalgia, unspecified; M19.90 Unspecified osteoarthritis, unspecified site; F32.9 Major depressive disorder, single episode, unspecified; F41.9 Anxiety disorder, unspecified; K21.9 Gastro-esophageal reflux disease without esophagitis; I95.1 Orthostatic hypotension; D64.9 Anemia, unspecified; R00.0 Tachycardia, unspecified; I11.0 Hypertensive heart disease with heart failure; K44.9 Diaphragmatic hernia without obstruction or gangrene; R13.10 Dysphagia, unspecified; K66.0 Peritoneal adhesions (postprocedural) (postinfection); K59.00 Constipation, unspecified; K22.2 Esophageal obstruction; G47.33 Obstructive sleep apnea (adult) (pediatric); I27.20 Pulmonary hypertension, unspecified; I35.1 Nonrheumatic aortic (valve) insufficiency; N32.81 Overactive bladder; Z98.818 Other dental procedure status; Z86.711 Personal history of pulmonary embolism; Z87.81 Personal history of (healed) traumatic fracture; Z98.49 Cataract extraction status, unspecified eye; Z88.0 Allergy status to penicillin; Z87.891 Personal history of nicotine dependence; Z80.0 Family history of malignant neoplasm of digestive organs; Z87.11 Personal history of peptic ulcer disease
CPT/HCPCS: 10879; 50010; 50101; 50249; 50386; 50455; 50555; 50558; 50962; 51297; 51437; 51489; 52182; 52265; 53307; 54022; 54118; 55326; 56462; 56525; 56526; 56531; 57092; 62110; 62900; 70005

== ENCOUNTER 2017-10-19 15:04 | Inpatient (IN) | payer OTHER, MEDICARE ==
[~2017-10-19] VITALS: Ht 152.4 cm; Wt 61.7 kg
--- NOTE | ~2017-10-19 | EKG ---
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 : 1940 Requested By: Elin Singh Order Number: [id number] MD: Dewey Du Measurements Intervals [place] Rate: 78 P: 72 MS: 173 QRS: -38 QRSD: 99 T: 59 QT: 386 QTc: 440 Interpretive Statements Sinus rhythm Right ventricular conduction delay Inferior infarct, old Compared to ECG 10/05/2017 10:53:46 no significant change was found Electronically Signed On 10-20-2017 8:39:42 CDT by Dewey Du [email or web address] <ELECTRONICALLY SIGNED> By: Dewey Du MD, [facility] 10/20/17 0839 1507 1507 Dewey Du MD, [facility] /EPI
--- NOTE | ~2017-10-19 | P ---
[facility] [place] [address] PROCEDURE REPORT Name: MINESH RODRIGUEZ Room #: 426-[facility] IN M.R.#: [id number] Admission: 10/19/17 Attend Phys: Franko Souza MD Discharge: Date of : 38 Report #: [id number] THIS REPORT FOR: //name// CC: Trent Souza DATE OF SERVICE: 10/21/2017 PROCEDURE PERFORMED: Upper endoscopy with Botox injection. HISTORY OF PRESENT ILLNESS: The patient is a 77-year-old female with history of dysphagia, nausea and vomiting. She was diagnosed with a large paraesophageal hiatal hernia and underwent surgical repair by Dr. Trent Retana approximately 1 week ago. She has had previous upper endoscopy with dilation without improvement. She was readmitted with recurrent nausea, vomiting. She was not able to have a manometry done due to the significance of her symptoms and her large hiatal hernia. A fundoplication was not performed, just a hernia repair. She underwent an upper GI yesterday, which showed unchanged marked generalized esophageal dilation with no esophageal motility with a large volume of retained food and debris within the esophageal lumen with an appearance suggesting high-grade stricture at the gastroesophageal junction. One consideration for this appearance would be achalasia. Plan is for upper endoscopy today. DESCRIPTION OF PROCEDURE: The risks and benefits of the procedure were explained to the patient, those risks including but not limited to bleeding, perforation, the risk of sedation. She understood these risks and gave informed consent. The procedure was performed under a general anesthesia. The patient was intubated due to her esophagus with food. Next using a standard Olympus upper endoscope, the scope was placed in the patient's mouth and advanced under direct vision through the esophagus, stomach and into the second portion of the duodenum. Throughout the entire esophagus, a large amount of food debris was noted. I was able to advance the scope through this area to the GE junction. The GE junction appeared normal. There was no stricture. I was able to advance the scope into the stomach without difficulty or resistance. There was food debris within the stomach as well. The pylorus was normal and patent. The duodenal bulb, first and second portion were normal. The scope was then brought back up into the patient's distal esophagus. Because of the likely diagnosis of achalasia, I proceeded with Botox injection in 4 quadrants of her lower esophageal sphincter area without difficulty. No bleeding was noted after injection. I then proceeded to remove some of the food within her stomach using a Sanford basket or a Sanford net. There was too much to be able to be removed with the net. Some was removed. The proximal esophagus was cleared. At this point, the scope was then withdrawn and the procedure terminated. The patient tolerated the procedure well. [address] [address] PROCEDURE REPORT Name: MINESH RODRIGUEZ Room #: 426-P [facility] IN M.R.#: [id number] Admission: 10/19/17 Attend Phys: Franko Souza MD Discharge: Date of : 38 Report #: [id number] IMPRESSION: 1. Large amount of food within the esophagus consistent with likely achalasia. Gastroesophageal junction was patent, injected with Botox today. 2. Large amount of food within the stomach as well. RECOMMENDATIONS: Observe the patient post-procedure. We will likely start clear liquids as tolerated. Thank you for allowing me to participate in her care. By: 1112 1851 Eduardo Cavazos MD /nt
[~2017-10-19 15:04] MED LIST changes: +ACULAR LS5 ML OPHTHALMIC; +OXYBUTYNIN 5 MG5 M1 PO; +OXYCODONE20 MG/1 ML PO; +REGLAN 10 MG TA10 MG PO
[2017-10-19 15:09] VITALS: BP 154/66
[2017-10-19 16:37] LABS: ABSOLUTE NEUTROPHILS 6.2 thou/uL (1.4-8.2); BASOPHILS 1.2 % (0.0-2.0); EOSINOPHILS 6.6 % (0.0-3.0); HEMATOCRIT 29.7 % (37.0-47.0); HEMOGLOBIN 9.9 gm/dL (12.0-15.0); LYMPHOCYTES 12.7 % (24.0-44.0); MCH 28.3 pg (26.0-34.0); MCHC 33.3 g/dL (28.0-37.0); MCV 85.1 fL (80.0-100.0); MONOCYTES 9.7 % (1.0-8.0); PLATELET COUNT 437 thou/uL (150-400); POLYS 69.8 % (36.0-66.0); RBC 3.49 mil/uL (4.20-5.00); RDW 15.1 % (10.5-14.5); WBC 8.9 thou/uL (4.0-11.0)
[2017-10-19 16:46] LABS: ANION GAP 9 mmol/L (7-16); BUN 10 mg/dL (7-18); CHLORIDE 103 mmol/L (98-107); CO2 31 mmol/L (21-32); CREATININE 1.1 mg/dL (0.6-1.0); GLUCOSE 107 mg/dL (74-106); POTASSIUM 3.4 mmol/L (3.5-5.1); SODIUM 143 mmol/L (136-145)
[2017-10-19 16:54] LABS: ALBUMIN 3.1 g/dL (3.4-5.0); LIPASE 53 U/L (73-393); MAGNESIUM 1.9 mg/dL (1.8-2.4); SGOT 15 U/L (15-37); SGPT 24 U/L (30-65); TOTAL BILIRUBIN 0.4 mg/dL (<0.1-1.0); TOTAL PROTEIN 7.1 g/dL (6.4-8.2); TROPONIN-I <0.06 ng/mL (<0.06)
[2017-10-19 17:25] LABS: URINE BILIRUBIN NEGATIVE (Negative); URINE BLOOD 1+ (Negative); URINE CLARITY CLEAR; URINE COLOR YELLOW; URINE GLUCOSE-RANDOM* NEGATIVE (Negative); URINE KETONES NEGATIVE (Negative); URINE NITRITE-REFLEX NEGATIVE (Negative); URINE PROTEIN (DIPSTICK) NEGATIVE (Negative); URINE UROBILINOGEN 0.2 E.U./dl (0.2-1.0)
[2017-10-19 17:26] LABS: URINE LEUKOCYTES-REFLEX 1+ (Negative)
[2017-10-19 17:34] LABS: CASTS None Seen /LPF (None Seen); CRYSTALS None Seen /LPF (None Seen); SQUAMOUS 4-10 Moderate /LPF (0-3)
[2017-10-19 17:35] LABS: BACTERIA-REFLEX 1-9 Few /HPF (None Seen); URINE RBC 0-2 Rare /HPF (0-2); URINE WBC-REFLEX 0-5 Rare /HPF (0-5)
[2017-10-19 19:30] VITALS: BP 137/58
[2017-10-19 20:00] VITALS: BP 137/58
[2017-10-19 20:15] VITALS: BP 158/72
[2017-10-20 04:30] VITALS: BP 152/70
[2017-10-20 06:28] LABS: CALCIUM 8.9 mg/dL (8.5-10.1); CREATININE 0.8 mg/dL (0.6-1.0); POTASSIUM 3.8 mmol/L (3.5-5.1)
[2017-10-20 08:15] VITALS: BP 148/47
[2017-10-20 20:03] VITALS: BP 148/95
[2017-10-21 05:12] VITALS: BP 148/95; BP 187/86
[2017-10-21 06:10] LABS: ABSOLUTE NEUTROPHILS 14.1 thou/uL (1.4-8.2); HEMATOCRIT 32.3 % (37.0-47.0); HEMOGLOBIN 10.5 gm/dL (12.0-15.0); LYMPHOCYTES 4.8 % (24.0-44.0); MCH 27.3 pg (26.0-34.0); MCHC 32.4 g/dL (28.0-37.0); MCV 84.2 fL (80.0-100.0); MONOCYTES 8.1 % (1.0-8.0); POLYS 86.1 % (36.0-66.0); RBC 3.84 mil/uL (4.20-5.00); RDW 14.9 % (10.5-14.5); WBC 16.3 thou/uL (4.0-11.0)
[2017-10-21 06:14] LABS: PLATELET COUNT 576 thou/uL (150-400)
[2017-10-21 06:20] LABS: CALCIUM 8.8 mg/dL (8.5-10.1); CREATININE 0.7 mg/dL (0.6-1.0); MAGNESIUM 1.7 mg/dL (1.8-2.4); POTASSIUM 3.1 mmol/L (3.5-5.1)
[2017-10-21 07:05] VITALS: BP 174/75
[2017-10-21 14:10] VITALS: BP 187/78
[2017-10-21 21:33] VITALS: BP 192/75
[2017-10-22 03:25] VITALS: BP 149/58
[2017-10-22 05:03] LABS: ABSOLUTE NEUTROPHILS 6.6 thou/uL (1.4-8.2); BASOPHILS 0.6 % (0.0-2.0); EOSINOPHILS 0.1 % (0.0-3.0); HEMATOCRIT 30.3 % (37.0-47.0); HEMOGLOBIN 10.1 gm/dL (12.0-15.0); LYMPHOCYTES 12.8 % (24.0-44.0); MCHC 33.4 g/dL (28.0-37.0); MCV 83.9 fL (80.0-100.0); MONOCYTES 10.1 % (1.0-8.0); POLYS 76.4 % (36.0-66.0); RBC 3.61 mil/uL (4.20-5.00); RDW 14.9 % (10.5-14.5); WBC 8.7 thou/uL (4.0-11.0)
[2017-10-22 05:08] LABS: CALCIUM 8.5 mg/dL (8.5-10.1); CREATININE 0.7 mg/dL (0.6-1.0)
[2017-10-22 05:10] LABS: PLATELET COUNT 457 thou/uL (150-400); POTASSIUM 2.7 mmol/L (3.5-5.1)
[2017-10-22 08:00] VITALS: BP 147/63
[2017-10-22 14:37] LABS: MAGNESIUM 1.7 mg/dL (1.8-2.4); POTASSIUM 3.2 mmol/L (3.5-5.1)
[2017-10-22] MEDS ORDERED: PRILOSEC OTC20 MG PO (15:18)
[2017-10-22 15:53] VITALS: BP 147/63
[2017-10-22 16:00] VITALS: BP 128/54
[2017-10-22 16:06] VITALS: BP 147/63
[2017-10-22 16:10] VITALS: BP 147/63
== END 2017-10-22 16:33 | disposition home or self-care (01) | DRG 391 ==
LOC: ER 15:04 → 4E 19:14 → EROBS 19:14 → 4E 19:52
PROVIDERS: Hospitalist; Internal Medicine; Nurse Practitioner Acute Care; Nurse Practitioner Family
PROC: 3E0G8GC Introduction of Other Therapeutic Substance into Upper GI, Via Natural or Artificial Opening Endoscopic (ICD-10-PCS; principal; 2017-10-21)
DX: K22.0 Achalasia of cardia (principal); N17.0 Acute kidney failure with tubular necrosis; K22.4 Dyskinesia of esophagus; K44.9 Diaphragmatic hernia without obstruction or gangrene; I10 Essential (primary) hypertension; R13.10 Dysphagia, unspecified; E78.5 Hyperlipidemia, unspecified; G89.29 Other chronic pain; M54.9 Dorsalgia, unspecified; M19.90 Unspecified osteoarthritis, unspecified site; F32.9 Major depressive disorder, single episode, unspecified; F41.9 Anxiety disorder, unspecified; K21.9 Gastro-esophageal reflux disease without esophagitis; D64.9 Anemia, unspecified; E87.6 Hypokalemia; M62.84 Sarcopenia; E86.0 Dehydration; Z90.710 Acquired absence of both cervix and uterus; Z98.818 Other dental procedure status; Z86.711 Personal history of pulmonary embolism; Z87.81 Personal history of (healed) traumatic fracture; Z98.49 Cataract extraction status, unspecified eye; Z88.0 Allergy status to penicillin; Z87.891 Personal history of nicotine dependence; Z80.0 Family history of malignant neoplasm of digestive organs; Z79.899 Other long term (current) drug therapy
CPT/HCPCS: 10084; 62110; 62900; 70005

== ENCOUNTER 2018-02-12 16:24 | Inpatient (IN) | payer OTHER, MEDICARE ==
[~2018-02-12] VITALS: Ht 152.4 cm; Wt 57.2 kg
--- NOTE | ~2018-02-12 | PATH ---
[address] [address] PATHOLOGY RPT PROCEDURE Name: MINESH RODRIGUEZ Room #: 210-P DIS IN M.R.#: [id number] Admission: 02/12/18 Date of : 38 Discharge: 02/14/18 Report #: [id number] Path Case #: [id number] [facility] Accession Number: [id number] . 01 Material submitted: . GASTRIC ULCER BX R/O H. PYLORI, MALIGNANCIES . 01 Clinical history: . Pre-OP DX: Melena, anemia Post-OP DX: Gastric ulcer . 02 Diagnosis: Gastric biopsy, "gastric ulcer biopsy, rule out H. pylori": - Mild chronic reactive gastropathy with mild chronic inflammation. - There is no acute ulceration or erosion present. - See comment. . (SHALINI:rebecca; 02/14/18) QLM/02/14/2018 . 02 Comment: The biopsy may not be pharmaceutical specialty representative as no ulcer is seen. The immunoperoxidase stain for Helicobacter pylori is negative. . (SHA:mml; 02/14/18) . 02 Electronically signed: . Aron iGbson MD, Pathologist NPI- [id number] . 01 Gross description: . Received in formalin labeled "Minesh Rodriguez, gastric ulcer BX, rule out H. pylori, malignancy," and additionally labeled on the requisition as "malignancies," are 3 segments of childers soft tissue measuring 1.3 x 0.7 x 0.3 cm in aggregate dimensions and ranging from 0.3 to 0.5 cm in maximum dimension. The specimen is submitted entirely in cassette A1. (TSD; 02/13/2018) TOB/TOB . 02 Pathologist provided ICD-10: K31.9, K29.50 . 02 CPT . 601928, H34063 Specimen Comment: A courtesy copy of this report has been sent to Specimen Comment: [phone], , . Specimen Comment: Report sent to , DR INFANTE / [place] [address] PATHOLOGY RPT PROCEDURE Name: MINESH RODRIGUEZ Room #: 210-P DIS IN M.R.#: [id number] Admission: 02/12/18 Date of : 38 Discharge: 02/14/18 Report #: [id number] Path Case #: [id number] Specimen Comment: A duplicate report has been generated due to demographic updates. Performed at: [address] [facility] [address], [place], [place] [id number] MD Darrel Patricio MD Phone: [phone] Performed at: [address] [facility] [id number] MD Concepción Dorsey MD Phone: [phone]
[2018-02-12 16:25] VITALS: BP 136/52
[2018-02-12 18:26] LABS: ABSOLUTE NEUTROPHILS 7.7 thou/uL (1.4-8.2); BASOPHILS 0.9 % (0.0-2.0); EOSINOPHILS 0.3 % (0.0-3.0); HEMATOCRIT 23.2 % (37.0-47.0); HEMOGLOBIN 7.7 gm/dL (12.0-15.0); LYMPHOCYTES 12.5 % (24.0-44.0); MCH 25.6 pg (26.0-34.0); MCHC 33.1 g/dL (28.0-37.0); MCV 77.5 fL (80.0-100.0); MONOCYTES 7.2 % (1.0-8.0); PLATELET COUNT 237 thou/uL (150-400); POLYS 79.1 % (36.0-66.0); RBC 2.99 mil/uL (4.20-5.00); RDW 19.8 % (10.5-14.5); WBC 9.8 thou/uL (4.0-11.0)
[2018-02-12 19:05] LABS: ALBUMIN 2.8 g/dL (3.4-5.0); CALCIUM 8.5 mg/dL (8.5-10.1); CREATININE 0.8 mg/dL (0.6-1.0); POTASSIUM 4.7 mmol/L (3.5-5.1); TOTAL BILIRUBIN 0.3 mg/dL (<0.1-1.0); TOTAL PROTEIN 5.9 g/dL (6.4-8.2)
[2018-02-12 20:12] LABS: ANISOCYTOSIS 2+; HYPOCHROMASIA 2+; MICROCYTES 2+
[2018-02-13 02:36] VITALS: BP 130/84
[2018-02-13 03:14] VITALS: BP 139/75
[2018-02-13 04:55] LABS: HEMATOCRIT 22.1 % (37.0-47.0); MCH 24.8 pg (26.0-34.0); MCHC 31.8 g/dL (28.0-37.0); MCV 77.7 fL (80.0-100.0); RBC 2.84 mil/uL (4.20-5.00); RDW 19.7 % (10.5-14.5); WBC 5.6 thou/uL (4.0-11.0)
[2018-02-13 05:01] LABS: CALCIUM 8.3 mg/dL (8.5-10.1); CREATININE 0.7 mg/dL (0.6-1.0); POTASSIUM 3.9 mmol/L (3.5-5.1)
[2018-02-13 07:09] VITALS: BP 157/83
[2018-02-13 11:38] VITALS: BP 156/70; BP 169/61
[2018-02-13 15:28] VITALS: BP 187/76
[2018-02-13 15:52] LABS: HEMOGLOBIN 8.9 gm/dL (12.0-15.0)
[2018-02-13 19:31] VITALS: BP 191/74
[2018-02-14 02:38] LABS: HEMATOCRIT 26.6 % (37.0-47.0); HEMOGLOBIN 8.7 gm/dL (12.0-15.0); MCHC 32.6 g/dL (28.0-37.0); MCV 79.7 fL (80.0-100.0); RBC 3.33 mil/uL (4.20-5.00); RDW 18.6 % (10.5-14.5); WBC 5.5 thou/uL (4.0-11.0)
[2018-02-14 03:24] LABS: CALCIUM 8.7 mg/dL (8.5-10.1); CREATININE 0.6 mg/dL (0.6-1.0); POTASSIUM 3.4 mmol/L (3.5-5.1)
[2018-02-14 03:29] VITALS: BP 197/86
[2018-02-14 07:36] VITALS: BP 142/76
[2018-02-14] MEDS ORDERED: CARDIZEM60 MG PO (11:02)
[2018-02-14] MEDS ORDERED: EXCEDRIN CAPLE1 EACH PO (11:02)
[2018-02-14 11:32] VITALS: BP 150/76
[2018-02-14] MEDS ORDERED: PROTONIX40 M1 PO (12:21)
[2018-02-14 14:38] VITALS: BP 150/76
[2018-02-14 14:44] VITALS: BP 150/76
== END 2018-02-14 15:24 | disposition home health service (06) | DRG 380 ==
LOC: ER 16:24 → EROBS 17:47 → 2N 17:47 → ENTRNSPT 02-14 15:10 → EDTRNSPTSTS 02-14 15:12 → 2N 02-14 15:24
PROVIDERS: Emergency Medicine; Hospitalist; Nurse Practitioner
PROC: 30233N1 Transfusion of Nonautologous Red Blood Cells into Peripheral Vein, Percutaneous Approach (ICD-10-PCS; principal; 2018-02-13)
PROC: 0DB68ZX Excision of Stomach, Via Natural or Artificial Opening Endoscopic, Diagnostic (ICD-10-PCS; principal; 2018-02-13)
DX: K22.11 Ulcer of esophagus with bleeding (principal); E43 Unspecified severe protein-calorie malnutrition; I10 Essential (primary) hypertension; E78.5 Hyperlipidemia, unspecified; M19.90 Unspecified osteoarthritis, unspecified site; F32.9 Major depressive disorder, single episode, unspecified; M62.84 Sarcopenia; E87.6 Hypokalemia; R29.6 Repeated falls; K25.4 Chronic or unspecified gastric ulcer with hemorrhage; F41.9 Anxiety disorder, unspecified; K59.00 Constipation, unspecified; K21.9 Gastro-esophageal reflux disease without esophagitis; Z87.891 Personal history of nicotine dependence; Z68.24 Body mass index [BMI] 24.0-24.9, adult; Z86.711 Personal history of pulmonary embolism; Z90.710 Acquired absence of both cervix and uterus; Z87.81 Personal history of (healed) traumatic fracture; Z79.899 Other long term (current) drug therapy; Z88.0 Allergy status to penicillin; Z80.0 Family history of malignant neoplasm of digestive organs
CPT/HCPCS: 10081; 62110; 62900

== ENCOUNTER → 2018-03-07 | Outpatient (CLI) | payer OTHER, MEDICARE ==
[~2018-03-07] MED LIST changes: +CARDIZEM60 MG PO; +EXCEDRIN CAPLE1 EACH PO; +PROTONIX40 M1 PO
== END ==
LOC: RAD 09:46
DX: Z12.31 Encounter for screening mammogram for malignant neoplasm of breast (principal)

== ENCOUNTER → 2018-04-12 | Outpatient (CLI) | payer OTHER, MEDICARE ==
[~2018-04-12] VITALS: Ht 152.4 cm; Wt 57.6 kg
--- NOTE | ~2018-04-12 | P ---
[facility] [address] PROCEDURE REPORT Name: MINESH RODRIGUEZ Room #: REG JAMI Paulino#: [id number] Admission: 04/12/18 Attend Phys: Eduardo Thomas Discharge: Date of : 38 Report #: [id number] THIS REPORT FOR: //name// CC: Eduardo Morales MD DATE OF SERVICE: 04/12/2018 PROCEDURE PERFORMED: Upper endoscopy. HISTORY OF PRESENT ILLNESS: The patient is a 77-year-old female with previous history of prepyloric gastric ulcers seen on upper endoscopy by Dr. Peraza in late January this year when the patient was having melanotic type stools. She is here for routine followup to evaluate healing. Biopsies at that time were negative for H. pylori. On the patient's medication list, she does list Excedrin as a medication, but she believes she takes Tylenol at night. We will need to clarify this further. She is on Protonix. She was on Pepcid prior to this. She also was noted to have esophagitis on last upper endoscopy. She denies any dysphagia or bleeding at this time. DESCRIPTION OF PROCEDURE: The risks and benefits of the procedure were explained to the patient, those risks including but not limited to bleeding, perforation and the risk of sedation. She understood these risks and gave informed consent. Sedation was given using propofol per anesthesia. Next, using a standard Olympus upper endoscope, the scope was placed in the patient's mouth and advanced under direct vision through the esophagus, stomach and into the second portion of the duodenum. The larynx was normal in appearance. The esophagus was normal throughout. The GE junction was normal. No evidence of esophagitis. Upon entering the stomach, a large amount of food was noted throughout the stomach suggesting gastroparesis. This did limit visualization throughout the fundus and the body. In the gastric antrum, in the prepyloric area, two clean white based ulcers were noted. No evidence of bleeding, no visible vessel. I did not repeat biopsies as recent biopsies were negative for H. pylori. The pylorus was normal and patent. The duodenal bulb, first and second portion were all normal. The scope was then withdrawn and the procedure terminated. The patient tolerated the procedure well. IMPRESSION: 1. Large amount of food within the stomach suggesting gastroparesis. 2. Two gastric ulcers in the prepyloric antral area. No evidence of bleeding. 3. Otherwise, normal upper endoscopy. RECOMMENDATIONS: 1. Continue daily PPI therapy. 2. We will discuss medications with the patient again. If she is taking [address] [address] PROCEDURE REPORT Name: MINESH RODRIGUEZ Room #: REG JAMI Paulino#: [id number] Admission: 04/12/18 Attend Phys: Eduardo Thomas Discharge: Date of : 38 Report #: [id number] Excedrin, which has aspirin in it, this may be causing her continued gastric ulcers and therefore would recommend discontinuing. If however, she is not on aspirin or NSAIDs, could consider adding Carafate at this time long-term. 3. If the patient is having nausea or vomiting, could consider a promotility agent. Thank you for allowing me to participate in her care. <ELECTRONICALLY SIGNED> By: Eduardo Cavazos MD 04/12/18 1152 1025 1119 Eduardo Cavazos MD /nt
== END | disposition home or self-care (01) ==
LOC: GI 07:57
DX: K25.9 Gastric ulcer, unspecified as acute or chronic, without hemorrhage or perforation (principal); K31.84 Gastroparesis; J43.9 Emphysema, unspecified; F32.9 Major depressive disorder, single episode, unspecified; F41.9 Anxiety disorder, unspecified; I10 Essential (primary) hypertension; K21.9 Gastro-esophageal reflux disease without esophagitis; E78.5 Hyperlipidemia, unspecified; M54.9 Dorsalgia, unspecified; G89.29 Other chronic pain; Z90.710 Acquired absence of both cervix and uterus; Z98.51 Tubal ligation status; Z98.41 Cataract extraction status, right eye; Z98.42 Cataract extraction status, left eye; Z98.890 Other specified postprocedural states; Z79.899 Other long term (current) drug therapy

== ENCOUNTER 2018-04-14 16:25 | Emergency (ER) | payer OTHER, MEDICARE ==
[~2018-04-14] VITALS: Ht 152.4 cm; Wt 57.1 kg
[2018-04-14 18:16] LABS: HEMOGLOBIN 12.4 gm/dL (12.0-15.0); MCH 27.7 pg (26.0-34.0); MCHC 32.7 g/dL (28.0-37.0); MCV 84.9 fL (80.0-100.0); PLATELET COUNT 284 thou/uL (150-400); RBC 4.47 mil/uL (4.20-5.00); RDW 21.5 % (10.5-14.5); WBC 6.1 thou/uL (4.0-11.0)
[2018-04-14 18:29] LABS: CALCIUM 9.8 mg/dL (8.5-10.1); CREATININE 0.8 mg/dL (0.6-1.0); POTASSIUM 3.3 mmol/L (3.5-5.1)
[2018-04-14 18:31] LABS: APTT 29.7 Seconds (24.5-32.8); PROTIME 10.4 Seconds (9.3-11.4)
[2018-04-14 18:34] LABS: ALBUMIN 3.9 g/dL (3.4-5.0); TOTAL BILIRUBIN 0.3 mg/dL (<0.1-1.0); TOTAL PROTEIN 7.9 g/dL (6.4-8.2)
[2018-04-14 18:40] LABS: ABSOLUTE NEUTROPHILS 3.1 thou/uL (1.4-8.2); ANISOCYTOSIS 1+
[2018-04-14 20:05] VITALS: BP 137/65
== END 2018-04-14 20:07 | disposition home or self-care (01) ==
LOC: ER 16:25
PROVIDERS: Emergency Medicine
DX: K92.1 Melena (principal); K27.9 Peptic ulcer, site unspecified, unspecified as acute or chronic, without hemorrhage or perforation; I10 Essential (primary) hypertension; G89.29 Other chronic pain; M54.9 Dorsalgia, unspecified; F32.9 Major depressive disorder, single episode, unspecified; F41.9 Anxiety disorder, unspecified; J43.9 Emphysema, unspecified; K21.9 Gastro-esophageal reflux disease without esophagitis; Z87.891 Personal history of nicotine dependence; Z88.0 Allergy status to penicillin; Z90.710 Acquired absence of both cervix and uterus; Z95.5 Presence of coronary angioplasty implant and graft; Z98.890 Other specified postprocedural states; Z86.711 Personal history of pulmonary embolism

== ENCOUNTER 2019-09-08 22:29 | Inpatient (IN) | payer OTHER, MEDICARE ==
[~2019-09-08] VITALS: Ht 162.6 cm; Wt 57.6 kg
--- NOTE | ~2019-09-08 | EMS ---
[facility] [address] [place] [address] EMS Patient Care Report Name: MINESH RODRIGUEZ Room #: 443-P ADM IN M.R.#: [id number] Admission: 09/09/19 Attend Phys: Tunde Valentine MD Discharge: Date of : 38 Report #: [id number] THIS REPORT FOR: //name// Report Transmitted: 09/09/2019 07:19 EMS Care Summary [facility] MED-ACT Incident [id number] @ 09/08/2019 21:53 Incident Location [address] [place] [address] Patient MINESH RODRIGUEZ Female, 79 Years 1940 Patient Address [address] [place] [address] Patient History Hypertension (HTN),Gastro-Esophageal Reflux Disease (GERD),Gastric Ulcer, Patient Allergies Penicillin allergy, Patient Medications Other, Alprazolam, Chief Complaint Abdominal pain Disposition Transported No Lights/[place] Reason Abdominal Pain/Problems Transported To [facility] Narrative Upon arrival pt. was supine in bed, dressed in a night gown. Pt. stated that she is lactose intolerant and consumed an "ice-cream soda" this afternoon and [facility] [address] [place] [address] EMS Patient Care Report Name: MINESH RODRIGUEZ Room #: 443-P ADM IN Lora#: [id number] Admission: 09/09/19 Attend Phys: Tunde Valentine MD Discharge: Date of : 38 Report #: [id number] shortly after began feeling, nauseated with abdominal cramping. Pt. vomited and had several bouts of diarrhea. Pt. stated this normally happens when she has diary. Pt. denied any blood in her stool or emesis. Pt. denied any other abnormal diet changes or illness. Due to location and condition of pt.s home pt. walked with minimal assistance to the cot which was by the unit. Pt. was secured and loaded into unit without incident. Biocom was given en route. No viable IV site was found for medication administration. Pt. was sheet lifted to bed without incident and report given to RN. Initial Vitals @22:12Temp: 96.7F, @22:04P: 91,R: 18,BP: 133/64,Pain: 6/10,GCS: 15,SpO2: 92,Revised Trauma: 12, @22:12P: 86,R: 18,BP: 176/95,GCS: 15,SpO2: 97,Revised Trauma: 12, @22:21P: 84,R: 16,BP: 170/86,GCS: 15,SpO2: 97,Revised Trauma: 12, Assessments @22:34MENTAL:No Abnormalities,SKIN:HEENT:Eyes: Left Pupil: 4-mm,Eyes: Right Pupil: 4-mm,Head/Face: No Abnormalities,Neck/Airway: No Abnormalities,LUNG SOUNDS:General: Nausea,General: Vomiting,General: Diarrhea,Left Upper: Guarding,Left Upper: Tenderness,Left Lower: Tenderness,Right Lower: Guarding,Left Lower: Guarding,Right Lower: Tenderness,Right Upper: Guarding,Right Upper: Tenderness,ABDOMEN:General: Nausea,General: Vomiting,General: Diarrhea,Left Upper: Guarding,Left Upper: Tenderness,Left Lower: Tenderness,Right Lower: Guarding,Left Lower: Guarding,Right Lower: Tenderness,Right Upper: Guarding,Right Upper: Tenderness,PELVIS//GI:No Abnormalities,EXTREMITIES:Left Arm: No Abnormalities,Right Arm: No Abnormalities,Left Leg: No Abnormalities,Right Leg: No Abnormalities,PULSE:Radial: 2+ Normal,NEURO:No Abnormalities, Impression Abdominal Pain Procedures @22:15Ondansetron - 4 Milligrams (mg) - OralResponse: Improved@22:02ALS AssessmentResponse: UnchangedSucceeded@22:10StretcherResponse: Unchanged Timeline 21:49,Call Received 21:49,Psap Call 21:53,Dispatched 21:55,En Route 22:00,On Scene 22:02,At Patient 22:02,ALS Assessment,Response: UnchangedSucceeded, 22:04,BP: 133/64 M,PULSE: 91,RR: 18 R,SPO2: 92 Ox,ETCO2: ,BG: ,PAIN: 6,GCS: 15, 22:10,Stretcher,Response: Unchanged [address] [address] EMS Patient Care Report Name: MINESH RODRIGUEZ Room #: 443-P [facility] IN M.R.#: [id number] Admission: 09/09/19 Attend Phys: Tunde Valentine MD Discharge: Date of : 38 Report #: [id number] 22:12,BP: / M,PULSE: ,RR: R,SPO2: Ox,ETCO2: ,BG: ,PAIN: ,GCS: , 22:12,BP: 176/95 M,PULSE: 86,RR: 18 R,SPO2: 97 Ox,ETCO2: ,BG: ,PAIN: ,GCS: 15, 22:13,Depart Scene 22:15,Ondansetron - 4 Milligrams (mg) - Oral,Response: Improved 22:21,BP: 170/86 M,PULSE: 84,RR: 16 R,SPO2: 97 Ox,ETCO2: ,BG: ,PAIN: ,GCS: 15, 22:22,At Destination 22:43,Call Closed Disclaimer v1.1 Copyright 2020 [employer] This EMS Care Summary contains data elements from the applicable legal record (which may be displayed differently). It is designed to provide pertinent information for the following purposes: continuity of care, clinical quality, and state data reporting. The complete legal record is available to ED staff and administrators of the receiving hospital in [employer] Patient Tracker. All data is provided "as is."
[2019-09-08 22:31] VITALS: BP 202/81
[2019-09-08 22:56] LABS: HEMATOCRIT 45.4 % (37.0-47.0); MCH 29.2 pg (26.0-34.0); MCHC 33.1 g/dL (28.0-37.0); MCV 88.3 fL (80.0-100.0); PLATELET COUNT 289 thou/uL (150-400); RBC 5.15 mil/uL (4.20-5.00); WBC 10.1 thou/uL (4.0-11.0)
[2019-09-08 23:05] LABS: URINE BILIRUBIN NEGATIVE (Negative); URINE BLOOD TRACE (Negative); URINE CLARITY CLEAR; URINE COLOR YELLOW; URINE GLUCOSE-RANDOM* 1+ (Negative); URINE KETONES 1+ (Negative); URINE LEUKOCYTES-REFLEX NEGATIVE (Negative); URINE NITRITE-REFLEX NEGATIVE (Negative); URINE PROTEIN (DIPSTICK) NEGATIVE (Negative); URINE SPECIFIC GRAVITY >= 1.030 (1.005-1.035); URINE UROBILINOGEN 0.2 E.U./dl (0.2-1.0)
[2019-09-08 23:07] LABS: CALCIUM 9.4 mg/dL (8.5-10.1); CREATININE 1.2 mg/dL (0.6-1.0); POTASSIUM 3.2 mmol/L (3.5-5.1)
[2019-09-08 23:13] LABS: ALBUMIN 3.8 g/dL (3.4-5.0); TOTAL BILIRUBIN 0.5 mg/dL (<0.1-1.0); TOTAL PROTEIN 7.6 g/dL (6.4-8.2)
[2019-09-08 23:23] LABS: BACTERIA-REFLEX 1-9 Few /HPF (None Seen); CASTS None Seen /LPF (None Seen); CRYSTALS None Seen /LPF (None Seen); SQUAMOUS 0-3 Few /LPF (0-3); URINE RBC 0-2 Rare /HPF (0-2); URINE WBC-REFLEX None Seen /HPF (0-5)
[2019-09-08 23:40] LABS: ABSOLUTE NEUTROPHILS 8.6 thou/uL (1.4-8.2)
[2019-09-09] VITALS (7 sets, daily range): BP systolic 149–185; BP diastolic 60–98
--- NOTE | 2019-09-09 01:30 | NUR ---
SON NIECY NOTIFIED OF ADMISSION TO 443, HE WILL NOTIFY FATHER, HIS NUMBER ALSO HAS BEEN ADDED SECOND TO NOTIFY
--- NOTE | 2019-09-09 04:41 | NUR ---
PT ARRIVED ON THE UNIT @0200 FROM ER THIS MORNING. A&OX3/4 FOR THIS NURSE WITH SLIGHT FORGETFULNESS ON HOW TO USE CALL LIGHT. PT ORIENTED TO THE UNIT. ADMISSION DONE AND CHARTED. C/O N/V/D DENIES PAIN. GISELE GIVENX1 FOR NAUSEA NO EMESIS NOTED. PT UP WITH ASSISTX1 TO THE BSC. ONETIME DOSE OF HYDRALAZINE ORDERED DUE TO HIGH BP OF 181/76 WITH RELIEF OF 153/69. FALL PREC IN PLACE AND CALL LIGHT IN REACH WILL CONT WITH POC TILL EOS.
[2019-09-09 07:16] LABS: CALCIUM 8.5 mg/dL (8.5-10.1); CREATININE 0.9 mg/dL (0.6-1.0); POTASSIUM 3.6 mmol/L (3.5-5.1)
--- NOTE | 2019-09-09 20:10 | NUR ---
PT CARE ASSUMED AT 0700. A&Ox4. PT HAS ONLY COMPLAINED ABOUT NAUSEA ONE TIME AT 0800. ZOFRAN GIVEN AND NO COMPLAINTS OF NAUSEA OR VOMITTING. MEDICATIONS UPDATED WITH PT SON AND CONFIRMED PHARMACY. IV PATENT WITH NO REDNESS OR EDEMA, SALINE LOCKED. BEDSIDE COMMODE. FALL PROTOCOL IN PLACE. WILL CONTINUE TO MONITOR. REPORT GIVEN TO ALEJANDRA ASHER.
[2019-09-10] VITALS (8 sets, daily range): BP systolic 152–157; BP diastolic 67–92
--- NOTE | 2019-09-10 02:47 | NUR ---
ASSUMED PT CARE AT 1900. PT HAD A FEVER TONIGHT, SHE WAS VERY WORRIED ABOUT IT, EVEN BECAME TEARFUL WHEN TELLING HER FAMILY ON THE PHONE. GAVE HER 1 TAB OF TYLENOL BC THAT WAS WHAT SHE REQUESTED AND TEMP WAS BACK TO NORMAL. NO C/ NAUSEA/DIARRHEA OVERNIGHT. UP TO BSC WITH STANDBY. CURRENTLY RESTING IN BED WITH EYES CLOSED, WILL CONTINUE TO MONITOR.
--- NOTE | 2019-09-10 11:44 | NUR ---
Rec call from RN that phys wants patient to dc home with HH care. SP with patient in room. She lives with spouse, all needs on one level. SHe is agreeable to HH care and has no preference. She is agreeable to [facility] care. Await to fax dc orders once orders rec. Verified address and PCP Dr Morales.
--- NOTE | 2019-09-10 13:07 | NUR ---
Patient to ri home today. Notfied [facility] who is accepting of patient however nursing staff not avail until tuesday. Notified patient who is in agreement.
--- NOTE | 2019-09-10 13:23 | NUR ---
DISCHARGE PAPERS GONE OVER WITH PATIENT SIGNED AND COPY IN CHART. IV ACSESS DCD. ALL BELONGINGS PACKED AND SENT WITH PATIENT. PATIENT CALLED WHO WILL PICK HER UP AT ER DOOR STAFF TO TAKE DOWN. PT W/O PAIN OR RESP DISTRESS AT THIS TIME.
== END 2019-09-10 13:51 | disposition home health service (06) | DRG 391 ==
LOC: ER 22:29 → EROBS 09-09 00:51 → 4S 09-09 00:51
PROVIDERS: Emergency Medicine; Nurse Practitioner Family; ADMIT Hospitalist
DX: K52.9 Noninfective gastroenteritis and colitis, unspecified (principal); N17.0 Acute kidney failure with tubular necrosis; I10 Essential (primary) hypertension; M54.9 Dorsalgia, unspecified; E73.9 Lactose intolerance, unspecified; M19.90 Unspecified osteoarthritis, unspecified site; E86.0 Dehydration; F32.9 Major depressive disorder, single episode, unspecified; F41.9 Anxiety disorder, unspecified; J43.9 Emphysema, unspecified; K21.9 Gastro-esophageal reflux disease without esophagitis; G89.4 Chronic pain syndrome; M54.5 Low back pain; Z79.01 Long term (current) use of anticoagulants; Z98.42 Cataract extraction status, left eye; Z86.711 Personal history of pulmonary embolism; Z90.710 Acquired absence of both cervix and uterus; Z98.41 Cataract extraction status, right eye; Z98.51 Tubal ligation status; Z79.899 Other long term (current) drug therapy; Z88.0 Allergy status to penicillin; Z87.891 Personal history of nicotine dependence; Z91.19 Patient's noncompliance with other medical treatment and regimen
CPT/HCPCS: 10195

== ENCOUNTER → 2020-01-08 | Outpatient (CLI) | payer OTHER, MEDICARE | LOC: RAD 11:01 | PROVIDERS: ATTEND Family Medicine | DX: Z12.31 Encounter for screening mammogram for malignant neoplasm of breast (principal) ==

== ENCOUNTER 2021-04-30 10:44 | Day surgery (SDC) | payer OTHER, MEDICARE ==
[~2021-04-30] VITALS: Ht 160 cm; Wt 52.2 kg
[~2021-04-30 10:44] MED LIST changes: +APAP650 PO; +BENTYL 10 MG CA10 MG PO; +DILTIAZEM HCL30 MG PO; +PRAVASTATIN SOD80 MG PO; +PREVAGEN PO
== END 2021-04-30 11:15 | disposition home or self-care (01) ==
LOC: OR 10:44 → TBA 10:50 → OR 11:15
PROVIDERS: ATTEND Surgery
DX: K40.90 Unilateral inguinal hernia, without obstruction or gangrene, not specified as recurrent (principal); Z53.8 Procedure and treatment not carried out for other reasons; I10 Essential (primary) hypertension; J43.9 Emphysema, unspecified; F32.9 Major depressive disorder, single episode, unspecified; F41.9 Anxiety disorder, unspecified; K21.9 Gastro-esophageal reflux disease without esophagitis; Z98.890 Other specified postprocedural states; Z79.899 Other long term (current) drug therapy; Z20.822 Contact with and (suspected) exposure to COVID-19; Z87.891 Personal history of nicotine dependence; Z90.710 Acquired absence of both cervix and uterus; Z98.51 Tubal ligation status

== ENCOUNTER → 2021-06-12 | Day surgery (SDC) | payer OTHER, MEDICARE ==
[~2021-06-12] VITALS: Ht 154.9 cm; Wt 53.1 kg
[~2021-06-12] MED LIST changes: +DULOXETINE HCL60 MG PO
[2021-06-12 06:59] VITALS: BP 151/58
[2021-06-12 07:38] LABS: HEMATOCRIT 39.5 % (37.0-47.0); HEMOGLOBIN 12.8 gm/dL (12.0-15.0)
[2021-06-12 09:31] VITALS: BP 151/58
--- NOTE | 2021-06-12 11:06 | O ---
[facility] [place] [address] OPERATIVE REPORT Name: MINESH RODRIGUEZ Room #: REG [facility].#: [id number] Admission: 06/12/21 Attend Phys: Trent Retana MD, Discharge: Date of : 36 Report #: [id number] THIS REPORT FOR: cc: Kenisha Morfin MD, Nora P. MD Soliman,Trent Gates MD FACS ~ DATE OF SERVICE: 06/12/2021 PREOPERATIVE DIAGNOSIS: Large left inguinal hernia. POSTOPERATIVE DIAGNOSIS: Large pantaloon (both direct and indirect) left inguinal hernia, incarcerated with sigmoid colon and omentum. PROCEDURE PERFORMED: Laparoscopic transabdominal preperitoneal (CONCEPCION) repair of a large left inguinal hernia with mesh. SURGEON: Trent Retana MD CHIEF RADIOLOGY: AR De Luna. ANESTHESIA: General endotracheal anesthesia. ESTIMATED BLOOD LOSS: Minimal (less than 5 mL). COMPLICATIONS: None appreciated. SPECIMENS: None. INDICATIONS: The patient is an 80-year-old female who presented with a large left inguinal bulge, having undergone an open right inguinal hernia repair with mesh previously. After thorough consultation with the patient, she has elected to proceed with the above-mentioned procedure today for definitive surgical management. The assistance of my nurse practitioner was imperative to the safe and successful completion of the procedure as she performed excellent retraction, exposure and suctioning throughout the entirety of the case at a level well above that of a surgical scrub technologist. DESCRIPTION OF PROCEDURE: After explaining the risks, benefits and alternatives of the procedure with the patient in detail in the preoperative holding area and obtaining consent, the patient was brought to the operating room and placed supine on the operating room table. After conducting a thorough timeout procedure, verifying correct patient and procedure, the patient was given general endotracheal anesthesia. Once adequate anesthesia was obtained, her SCDs were hooked up to the pneumatic compression device and she was given a [facility] [email or web address] [place] [address] OPERATIVE REPORT Name: MINESH RODRIGUEZ Room #: REG [facility]..#: [id number] Admission: 06/12/21 Attend Phys: Trent Retana MD, Discharge: Date of : 36 Report #: [id number] preoperative dose of antibiotics in line with the SCIP protocol. The patient's abdomen was now prepped and draped in a standard surgical sterile fashion. Then, 5 mL of 0.5% Marcaine with epinephrine were used to anesthetize the skin in the left upper quadrant midclavicular line in subcostal location. A #15 bladed scalpel was used to create a small skin natalie at this location. A 5 mm Visiport was placed over 0-degree 5 mm laparoscope and was introduced through this incision site. Once intraabdominal placement was verified visually, the obturator for the trocar and laparoscope were both removed and the abdomen was insufflated to 15 mmHg using carbon dioxide gas. Laparoscope was changed to a 5 mm 30-degree laparoscope, which was reintroduced through this trocar. The entire abdomen was evaluated to ensure no injury upon entry. There were significant adhesions throughout the mid abdomen that were filmy in nature and I was able to navigate around these in a cephalad direction to the right upper quadrant to visualize and place an additional 5 mm port at the right upper quadrant midclavicular line in subcostal location in standard fashion under direct vision. I then proceeded to use EndoShears to take down these filmy adhesions and free the entirety of the intraabdominal domain, whereby I then placed a 12-mm port in the supraumbilical location under standard fashion and under direct vision once again. The laparoscope was now removed, changed to the supraumbilical trocar and I proceeded to create a preperitoneal flap in the left groin, starting from just superior to the anterior superior iliac spine on the left all the way across midline. Once I had scored across the abdominal wall, I placed the patient in Trendelenburg position with the left side elevated and I was able to reduce the sigmoid colon and omentum. There were some adhesions of the omentum that were taken down with hook electrocautery to free the entirety of these. I now proceeded to complete creation of the preperitoneal flap using electrocautery to dissect as low in the pelvic brim as possible. I was able to easily dissect out the hernia sac and reduced this extremely low on the abdominal wall. I did place clips on one bleeding tributary from the inferior epigastric artery, with complete hemostasis. Now that I had dissected free the entirety of the left inguinal space, I selected a piece of ProGrip mesh tailored to the left groin. This was rolled up, placed in the intraabdominal domain where it was maneuvered into appropriate position and pressed into the abdominal wall. This was then unrolled inferiorly, giving me excellent overlap outside the hernia defect in question. I did use the SorbaFix absorbable fixation device to anchor this at the pubic tubercle as well as a few tacks having been placed on the superior aspect of the mesh just simply due to the sheer size of the defects in the abdominal wall. This would add additional security to prevent mesh displacement. The preperitoneal flap was then placed back up over the mesh and tacked into position, covering the mesh in its entirety to prevent intraabdominal mesh exposure. Hemostasis was assured. The laparoscope was removed, placed back in the right flank, 5 mm port. I closed the supraumbilical fascial incision using 0 PDS suture on the Jc-Michael suture passer device under direct vision. This was then tied down to prevent incarceration of bowel or omentum in my suture repair. The abdomen was now fully desufflated. All [facility] [address] [place] [address] OPERATIVE REPORT Name: MINESH RODRIGUEZ Room #: REG [facility].#: [id number] Admission: 06/12/21 Attend Phys: Trent Retana MD, Discharge: Date of : 36 Report #: [id number] trocars were removed under direct vision. A 4-0 Monocryl was used in a standard subcuticular fashion for all skin incisions and Dermabond glue was applied to all skin wounds. At the end of the procedure, all instrument, needle and sponge counts were correct. The patient tolerated the procedure without incident, was awakened in the operating room and transitioned to the recovery room in stable condition with no apparent complications. <ELECTRONICALLY SIGNED> By: Trent Retana MD, FACS 06/12/21 [id number] Trent Retana MD, FACS /nt
== END | disposition home or self-care (01) ==
LOC: OR 06:06
PROVIDERS: ATTEND Surgery
DX: K40.30 Unilateral inguinal hernia, with obstruction, without gangrene, not specified as recurrent (principal); I10 Essential (primary) hypertension; F32.9 Major depressive disorder, single episode, unspecified; F41.9 Anxiety disorder, unspecified; K21.9 Gastro-esophageal reflux disease without esophagitis; J43.9 Emphysema, unspecified; M19.90 Unspecified osteoarthritis, unspecified site; Z98.890 Other specified postprocedural states; Z79.899 Other long term (current) drug therapy; Z90.710 Acquired absence of both cervix and uterus; Z98.51 Tubal ligation status; Z86.711 Personal history of pulmonary embolism; Z79.01 Long term (current) use of anticoagulants; Z88.0 Allergy status to penicillin
CPT/HCPCS: 50010; 50101; 50411; 50555; 50687; 52265; 52266; 54022; 54118; 54169; 55245; 56462; 56525; 56526; 58574; 58911; 62110; 62900; 70005